=== PATIENT | female | born 1950 | race Two or more races ===

== ENCOUNTER 2020-02-01 14:11 | Emergency (ER) | payer OTHER ==
[~2020-02-01] VITALS: Ht 152.4 cm; Wt 67.1 kg
[~2020-02-01 14:11] MED LIST: CAPT25TA5 PO; HYDR25TA4 PO; METF-370 PO; METO-158 PO; OMEP20TA PO
[2020-02-01 15:13] LABS: Urine Bacteria NONE SEEN /hpf (None Seen); Urine Blood TRACE /uL (Negative); Urine Specific Gravity 1.011 (1.001-1.035); Urine WBC 4 /hpf (0 - 5)
[2020-02-01 15:27] LABS: Basophils # (auto) 0 10 ^3/uL (0-0.2); Basophils % (auto) 0.4 % (0.0-2.0); Eosinophils # (auto) 0.1 10 ^3/uL (0-0.8); Eosinophils % (auto) 0.9 % (0.0-7.0); Hematocrit 43.1 % (36.0-46.0); Hemoglobin 15.2 g/dL (12.2-16.2); Lymphocytes # (auto) 2.1 10 ^3/uL (0.4-5.4); Lymphocytes % (auto) 17.8 % (10.0-50.0); Mean Corpuscular Hemoglobin 29.4 pg (28.0-32.0); Mean Corpuscular Hgb Conc. 35.2 g/dL (32.0-36.0); Mean Corpuscular Volume 83.7 fL (80.0-100.0); Monocytes # (auto) 0.8 10 ^3/uL (0-1.3); Monocytes % (auto) 6.6 % (0.0-12.0); Neutrophils # (auto) 8.7 10 ^3/uL (1.6-8.6); Neutrophils % (auto) 74.3 % (37.0-80.0); Nucleated Red Blood Cells % 0.2 %; Platelet Count (auto) 289 10^3/uL (140-450); Red Blood Cells 5.15 10^6/uL (4.0-5.20); Red Cell Distribution Width 13.8 % (11.8-14.3); White Blood Cell 11.7 10^3/uL (4.4-10.8)
[2020-02-01 15:47] LABS: Calcium 9.5 mg/dL (8.5-10.1); Potassium 3.6 mmol/L (3.5-5.1)
[2020-02-01 15:52] LABS: BUN/Creatinine Ratio 15.4; Bilirubin, Total 0.6 mg/dL (0.2-1.0); Total Protein 9.2 g/dL (6.4-8.2)
[2020-02-01] MEDS ORDERED: GLYCERIN ADULT RECTAL SUPP PR ONE (16:15)
[2020-02-01] MEDS ORDERED: FLEET ENEMA(ADULT) 135 ML PR ONE (16:15)
[2020-02-01 18:58] VITALS: BP 121/45
== END 2020-02-01 19:32 | disposition home or self-care (01) ==
LOC: ER 14:11
DX: R10.84 Generalized abdominal pain (principal); K59.00 Constipation, unspecified
CPT/HCPCS: 36415; 70450; 74018; 80053; 81001; 85025; 93005

== ENCOUNTER 2020-05-27 19:12 | Inpatient (IN) | payer OTHER ==
[~2020-05-27] VITALS: Ht 154.9 cm; Wt 68.5 kg
[2020-05-27] MEDS ORDERED: ONDANSETRON HCL 4 MG/2 ML VIAL IV ONE (20:15)
[2020-05-27] MEDS ORDERED: HYDROmorphone HCL 2 MG/ML VL IV ONE (20:15)
[2020-05-27 21:09] LABS: Urine Bacteria NONE SEEN /hpf (None Seen); Urine Blood TRACE /uL (Negative); Urine Specific Gravity 1.009 (1.001-1.035); Urine WBC 3 /hpf (0 - 5)
[2020-05-27 22:06] LABS: Basophils # (auto) 0.1 10 ^3/uL (0-0.2); Basophils % (auto) 0.6 % (0.0-2.0); Eosinophils # (auto) 0.1 10 ^3/uL (0-0.8); Eosinophils % (auto) 1.1 % (0.0-7.0); Hematocrit 44.2 % (36.0-46.0); Hemoglobin 14.9 g/dL (12.2-16.2); Lymphocytes # (auto) 2.3 10 ^3/uL (0.4-5.4); Lymphocytes % (auto) 23.3 % (10.0-50.0); Mean Corpuscular Hemoglobin 28.9 pg (28.0-32.0); Mean Corpuscular Hgb Conc. 33.6 g/dL (32.0-36.0); Mean Corpuscular Volume 85.9 fL (80.0-100.0); Monocytes # (auto) 0.6 10 ^3/uL (0-1.3); Neutrophils # (auto) 6.7 10 ^3/uL (1.6-8.6); Nucleated Red Blood Cells % 0.1 %; Platelet Count (auto) 303 10^3/uL (140-450); Red Blood Cells 5.15 10^6/uL (4.0-5.20); Red Cell Distribution Width 13.8 % (11.8-14.3); White Blood Cell 9.7 10^3/uL (4.4-10.8)
[2020-05-27 22:27] LABS: Albumin 4.2 g/dL (3.4-5.0); Anion Gap 9 (5-15); Blood Urea Nitrogen 24 mg/dL (7-18); Calcium 9.9 mg/dL (8.5-10.1); Carbon Dioxide 24 mmol/L (21-32); Chloride 99 mmol/L (98-107); Glucose 109 mg/dL (74-106); Lipase 133 U/L (73-393); Potassium 3.6 mmol/L (3.5-5.1); Sodium 132 mmol/L (136-145)
[2020-05-27 22:33] LABS: Alanine Aminotransferase 26 U/L (13-56); Alkaline Phosphatase 80 U/L (45-117); Aspartate Aminotransferase 20 U/L (15-37); BUN/Creatinine Ratio 19.5; Bilirubin, Total 0.6 mg/dL (0.2-1.0); GFR African American 55 mL/min; GFR Non-African American 46 mL/min; Magnesium 2.4 mg/dL (1.6-2.6); Total Protein 9.8 g/dL (6.4-8.2)
[2020-05-27 22:46] LABS: Partial Thromboplastin Time 29.9 sec (23.64-32.05)
[2020-05-28] VITALS (7 sets, daily range): BP systolic 128–162; BP diastolic 67–76
[2020-05-28] MEDS ORDERED: PANTOPRAZOLE 40 MG/10 ML VIAL INJ IV ONE (00:30)
[2020-05-28] MEDS ORDERED: SODIUM CHLORIDE 0.9% 500 ML IV ONE (00:30)
[2020-05-28] MEDS ORDERED: HYDROcodone-ACET 5/325MG TAB PO PRN (00:30)
[2020-05-28] MEDS ORDERED: ONDANSETRON HCL 4 MG/2 ML VIAL IV PRN (00:30)
[2020-05-28] MEDS ORDERED: MORPHINE SULFATE 4 MG/ML SYR/VIAL IV PRN (00:30)
[2020-05-28] MEDS ORDERED: ACETAMINOPHEN 325 MG TAB PO PRN (00:30)
[2020-05-28] MEDS: SODIUM CHLORIDE 0.9% 1,000 ML IV SCH ×2 (02:10→13:50)
--- NOTE | 2020-05-28 05:05 | NUR ---
MS admit from [facility] admitted to tele/MS after SBAR received. Patient oriented to Marilu nicole RN, unit, room, bed, and unit policies regarding patient care and visiting hours. Patient weighed by bed scale and encouraged to call if they need something. All questions and concerns addressed, patient verbalized understanding. Note: Came per wheelchair awake ,alert oriented x 4, Kenyan speaking, placed in the bed comfortably, vital signs checked.
--- NOTE | 2020-05-28 06:53 | NUR ---
Called/paged Trey Galvez called re:blood pressure is 178/84,pulse is 74,right sude, left side is 162/72,pulse is 68 left side.. Waiting for call back. Continue care.
[2020-05-28] MEDS ORDERED: hydrALAZINE HCL 20 MG/ML VL IV PRN (07:00)
--- NOTE | 2020-05-28 07:01 | NUR ---
returned call Trey Galvez returned call, updated on patient status and reason for call, orders received of hydralazine 10mg.i.v.p. for systolic blood pressure above 150 every 6hours p.r.n. Continue care.
--- NOTE | 2020-05-28 07:21 | NUR ---
Report given to Alfonso Valdez, patient is resting no distress.
--- NOTE | 2020-05-28 07:30 | NUR ---
Opening Shift Note Assumed care of patient, who is alert and oriented x4. Respirations are even and unlabored. No S/S of distress/SOB or pain. Bed is low, locked with 2x side rails up. Call light is within reach. Instructed on POC and to call for assist PRN, will continue to monitor for changes Q1hr and PRN.
[2020-05-28] MEDS: cefTRIAXone 1GM/50ML D5W 50 ML IV SCH (09:21)
[2020-05-28] MEDS: PANTOPRAZOLE 40 MG/10 ML VIAL INJ IV SCH (09:21)
--- NOTE | 2020-05-28 14:37 | NUR ---
EGD Patient taken down for EGD.
[2020-05-28 14:54] LABS: Potassium 3.4 mmol/L (3.5-5.1)
[2020-05-28 14:56] LABS: BUN/Creatinine Ratio 18.1
[2020-05-28] MEDS ORDERED: GADOTERIDOL 279.3mg/mL 20ml Vial IV ONE (15:00)
[2020-05-28] MEDS ORDERED: LIDOCAINE VISCOUS 2% 15ML UD ONE (15:41)
[2020-05-28] MEDS ORDERED: diphenhdrAMINE HCL 50 MG/1 ML VL ONE (15:42)
[2020-05-28] MEDS ORDERED: fentaNYL CITRATE 100 MCG/2 ML VL ONE (15:42)
[2020-05-28] MEDS ORDERED: MIDAZOLAM HCL 5 MG/ML-1ML VIAL ONE (15:42)
[2020-05-28] MEDS ORDERED: SODIUM CHLORIDE LOCK 10 ML ONE (15:44)
--- NOTE | 2020-05-28 16:37 | NUR ---
Back in room Returned from EGD. Per MD patient may be discharged tonight if she tolerates dinner tray without nausea or vomiting.
--- NOTE | 2020-05-28 16:41 | NUR ---
Spoke with Dr. Yohana Mccray In regards to possible discharge plan. Dr. Merrick Fernandez would like patient discharged with Protonix 40 mg PO Daily and Carafate 1 gm PO BID. Per Yohana Mccray he will electronically send prescriptions. Will continue to monitor.
--- NOTE | 2020-05-28 16:50 | NUR ---
Spoke with family Spoke with after password was verified. Advised that patient may be discharged if she tolerates full liquid dinner. All questions answered at this time. Will continue to monitor.
[2020-05-28] MEDS: SUCRALFATE 1 GM/10 ML ORAL SUSP PO SCH ×2 (17:18→21:12)
[2020-05-28] MEDS ORDERED: SUCR1SUS10 PO (17:55)
[2020-05-28] MEDS ORDERED: PANT40T PO (17:55)
[2020-05-28] MEDS ORDERED: LEVO500T21 PO (18:04)
--- NOTE | 2020-05-28 19:05 | NUR ---
Endorsed DC To NOC RN. All questions answered.
--- NOTE | 2020-05-28 20:40 | NUR ---
discomfort pt. in pain with headache and generalized discomfort. some n/v post dinner. will continue to monitor.
--- NOTE | 2020-05-28 20:40 | NUR ---
d/c plan pt. d/c held until tomorrow, tentatively, d/t home health eval not cleared allen baez eval and s/s consult pending, however, no clearance for home health set-up.
--- NOTE | 2020-05-28 22:30 | NUR ---
spoke with md allen md says home health completed with [facility] and to not hold up d/c d/t home health/ss consult. allen informed about overall pt. discomfort and nausea. says that is common with gastritis and will not go away overnight. education given to pt. that this will last for next couple of weeks. pt. to stay overnight and see if tolerate breakfast and to plan for d/c in am. pt. and family aware. will continue to monitor pt. status.
[2020-05-29] MEDS: SODIUM CHLORIDE 0.9% 1,000 ML IV SCH (03:02)
[2020-05-29 05:25] VITALS: BP 131/65
[2020-05-29] MEDS: SUCRALFATE 1 GM/10 ML ORAL SUSP PO SCH ×2 (05:57→13:41)
[2020-05-29 06:29] VITALS: BP 131/65
[2020-05-29 08:00] VITALS: BP 129/62
[2020-05-29 09:00] VITALS: BP 129/62
[2020-05-29] MEDS: cefTRIAXone 1GM/50ML D5W 50 ML IV SCH (09:19)
--- NOTE | 2020-05-29 11:00 | NUR ---
DR. KONG PHONE CALL RECEIVED FROM DR. SOTOMAYOR REGARDING DC PATIENT. INFORMED DR. SOTOMAYOR PATIENT HAS NO C/O NAUSEA OR VOMITING THIS MORNING. DR. SOTOMAYOR STATED IS OKAY FOR PATIENT TO HAVE NAUSEA DUE TO DX. DR. SOTOMAYOR DC ORDER FOR MRI ABDOMEN PATIENT CAN DO EXAM OUTPATIENT.ORDERS TO DC PATIENT WILL BE CARRIED OUT.
[2020-05-29] MEDS: PANTOPRAZOLE 40 MG/10 ML VIAL INJ IV SCH (11:23)
[2020-05-29 11:33] VITALS: BP 129/62
--- NOTE | 2020-05-29 11:35 | NUR ---
Opening Shift Note Assumed care of patient, awake and alert. No S/S of distress/SOB or pain. Instructed on POC and to call for assist PRN, will continue to monitor for changes Q1hr and PRN. Bed is locked and in lowest position. Call light within reach. Addendum: 05/29/20 at 1256 by SIDDHARTHA SALGADO RN RN Incorrect time the correct time is 0730 for note.
--- NOTE | 2020-05-29 11:55 | NUR ---
HOME HEALTH SOCIAL SERVICE CONSULT FAXED OVER TO [phone] TO [facility]. PHONE CALL MADE X 2 TO YULY AT [phone] [facility] TO VERIFY FAX WAS RECEIVED NO ANSWER. WILL CONTINUE TO CALL TO VERIFY HOME HEALTH SOCIAL SERVICE CONSULT RECEIVED.
--- NOTE | 2020-05-29 13:43 | NUR ---
Discharge instructions given as ordered. Encourage to follow up with PMD as instructed. All questions and concerns addressed. Patient verbalized understanding. Medication reconciliation form completed and copy given to patient. Home medications held in Pharmacy returned to patient, and needed vaccines given. IV removed with catheter intact, pressure dressing applied. Patient awaiting transportation.
[2020-05-29 14:00] VITALS: BP 135/68
--- NOTE | 2020-05-29 14:57 | NUR ---
Patient taken to vehicle via wheelchair with all personal belongings, accompanied by staff and family member. No distress noted at time of departure.
--- NOTE | 2020-05-31 10:31 | NUR ---
No call or page received from [employer] this weekend. Contacted Hilary at [facility] and confirmed pt had been accepted onto service with [facility]. Clinical information faxed and auth provided by [facility].
== END 2020-05-29 18:00 | disposition home health service (06) | DRG 391 ==
LOC: ER 19:12 → OVERFLOW 19:13 → WEST WING 05-28 05:05
PROVIDERS: ADMIT Nurse Practitioner; ATTEND Internal Medicine
PROC: 0DB88ZX Excision of Small Intestine, Via Natural or Artificial Opening Endoscopic, Diagnostic (ICD-10-PCS; 2020-05-28)
PROC: 0DB68ZX Excision of Stomach, Via Natural or Artificial Opening Endoscopic, Diagnostic (ICD-10-PCS; principal; 2020-05-28 15:45)
DX: K29.70 Gastritis, unspecified, without bleeding (principal); N17.0 Acute kidney failure with tubular necrosis; N39.0 Urinary tract infection, site not specified; K44.9 Diaphragmatic hernia without obstruction or gangrene; K80.50 Calculus of bile duct without cholangitis or cholecystitis without obstruction; E11.9 Type 2 diabetes mellitus without complications; R16.0 Hepatomegaly, not elsewhere classified; K21.9 Gastro-esophageal reflux disease without esophagitis; I10 Essential (primary) hypertension; E78.5 Hyperlipidemia, unspecified; Z85.528 Personal history of other malignant neoplasm of kidney; Z90.49 Acquired absence of other specified parts of digestive tract; Z90.5 Acquired absence of kidney; Z90.710 Acquired absence of both cervix and uterus; Z88.6 Allergy status to analgesic agent
CPT/HCPCS: 36415; 43239; 74176; 74181; 76705; 80048; 80053; 81001; 82150; 82962; 83690; 83735; 84484; 85025; 85610; 85730; 93005; 96361; 96374; 96375; C9113; G0378; J0696; J2250; J2405

== ENCOUNTER 2020-09-18 06:41 | Emergency (ER) | payer OTHER ==
[~2020-09-18] VITALS: Ht 152.4 cm; Wt 70.3 kg
[~2020-09-18 06:41] MED LIST changes: +LEVO500T21 PO; +PANT40T PO; +SUCR1SUS10 PO
[2020-09-18 08:16] LABS: Basophils # (auto) 0 10 ^3/uL (0-0.2); Basophils % (auto) 0.5 % (0.0-2.0); Eosinophils # (auto) 0.1 10 ^3/uL (0-0.8); Eosinophils % (auto) 0.8 % (0.0-7.0); Hematocrit 42.5 % (36.0-46.0); Hemoglobin 14.4 g/dL (12.2-16.2); Lymphocytes # (auto) 1.4 10 ^3/uL (0.4-5.4); Lymphocytes % (auto) 17.4 % (10.0-50.0); Mean Corpuscular Hgb Conc. 33.9 g/dL (32.0-36.0); Mean Corpuscular Volume 85.5 fL (80.0-100.0); Monocytes # (auto) 0.6 10 ^3/uL (0-1.3); Monocytes % (auto) 7.6 % (0.0-12.0); Neutrophils % (auto) 73.7 % (37.0-80.0); Nucleated Red Blood Cells % 0.2 %; Platelet Count (auto) 307 10^3/uL (140-450); Red Blood Cells 4.97 10^6/uL (4.0-5.20); Red Cell Distribution Width 13.8 % (11.8-14.3); White Blood Cell 8.2 10^3/uL (4.4-10.8)
[2020-09-18 08:26] LABS: INR 0.97 (0.9-1.15); Partial Thromboplastin Time 31.2 sec (23.0-31.2)
[2020-09-18 08:29] LABS: Alanine Aminotransferase 24 U/L (13-56); Anion Gap 7 (5-15); Aspartate Aminotransferase 16 U/L (15-37); BUN/Creatinine Ratio 14.8; Blood Urea Nitrogen 18 mg/dL (7-18); Calcium 9.2 mg/dL (8.5-10.1); Carbon Dioxide 27 mmol/L (21-32); Chloride 99 mmol/L (98-107); GFR African American 56 mL/min; GFR Non-African American 46 mL/min; Glucose 118 mg/dL (74-106); Magnesium 2.5 mg/dL (1.6-2.6); Potassium 3.5 mmol/L (3.5-5.1); Sodium 133 mmol/L (136-145)
[2020-09-18 08:34] LABS: Alkaline Phosphatase 94 U/L (45-117); Bilirubin, Total 0.6 mg/dL (0.2-1.0); Total Protein 9.1 g/dL (6.4-8.2)
[2020-09-18 08:46] LABS: Albumin 0.6 g/dL (3.4-5.0)
[2020-09-18 10:00] VITALS: BP 133/95
[2020-09-18] MEDS ORDERED: HYDROcodone-ACET 10/325MG TAB PO ONE (12:15)
[2020-09-18] MEDS ORDERED: KETOROLAC TROMETH 60MG/2ML VIAL IM ONE (12:15)
== END 2020-09-18 12:58 | disposition home or self-care (01) ==
LOC: ER 06:41
DX: N39.0 Urinary tract infection, site not specified (principal); R51.9 Headache, unspecified; R42 Dizziness and giddiness; E43 Unspecified severe protein-calorie malnutrition; I10 Essential (primary) hypertension; E11.9 Type 2 diabetes mellitus without complications; E78.5 Hyperlipidemia, unspecified; Z68.30 Body mass index [BMI] 30.0-30.9, adult; Z90.89 Acquired absence of other organs; Z90.49 Acquired absence of other specified parts of digestive tract; Z90.710 Acquired absence of both cervix and uterus
CPT/HCPCS: 36415; 70450; 71045; 80053; 83735; 83880; 84484; 85025; 85610; 85730; 93005

== ENCOUNTER 2020-09-25 15:08 | Inpatient (IN) | payer OTHER ==
--- NOTE | 2020-09-15 03:59 | NUR ---
Elevated Temp Patient temp 101.4 Patient medicated per provider orders. Addendum: 09/26/20 at 0403 by DOTTY ALVES RN RN Correct time and date 0359 09/26/2020
[~2020-09-25] VITALS: Ht 154.9 cm; Wt 70.0 kg
[2020-09-25] MEDS ORDERED: SODIUM CHLORIDE 0.9% 1,000 ML IVB ONE (16:30)
[2020-09-25 16:43] LABS: Basophils # (auto) 0.1 10 ^3/uL (0-0.2); Basophils % (auto) 0.6 % (0.0-2.0); Eosinophils # (auto) 0 10 ^3/uL (0-0.8); Hematocrit 35.5 % (36.0-46.0); Hemoglobin 12.8 g/dL (12.2-16.2); Lymphocytes # (auto) 0.6 10 ^3/uL (0.4-5.4); Lymphocytes % (auto) 4.6 % (10.0-50.0); Mean Corpuscular Hemoglobin 29.1 pg (28.0-32.0); Mean Corpuscular Hgb Conc. 36.1 g/dL (32.0-36.0); Mean Corpuscular Volume 80.6 fL (80.0-100.0); Monocytes # (auto) 0.5 10 ^3/uL (0-1.3); Monocytes % (auto) 3.6 % (0.0-12.0); Neutrophils # (auto) 11.8 10 ^3/uL (1.6-8.6); Neutrophils % (auto) 91.2 % (37.0-80.0); Nucleated Red Blood Cells % 0.2 %; Platelet Count (auto) 276 10^3/uL (140-450); Red Blood Cells 4.41 10^6/uL (4.0-5.20)
[2020-09-25 16:59] LABS: INR 1.04 (0.9-1.15); Partial Thromboplastin Time 34.2 sec (23.0-31.2)
[2020-09-25 17:04] LABS: Albumin 3.1 g/dL (3.4-5.0); Anion Gap 12 (5-15); Blood Urea Nitrogen 20 mg/dL (7-18); Calcium 8.6 mg/dL (8.5-10.1); Carbon Dioxide 23 mmol/L (21-32); Chloride 80 mmol/L (98-107); Glucose 131 mg/dL (74-106)
[2020-09-25 17:12] LABS: Alanine Aminotransferase 31 U/L (13-56); Alkaline Phosphatase 99 U/L (45-117); Aspartate Aminotransferase 36 U/L (15-37); BUN/Creatinine Ratio 14.5; Bilirubin, Total 0.8 mg/dL (0.2-1.0); GFR African American 48 mL/min; GFR Non-African American 40 mL/min; Total Protein 8.7 g/dL (6.4-8.2)
[2020-09-25 17:28] LABS: Sodium 115 mmol/L (136-145)
[2020-09-25] MEDS ORDERED: SODIUM CHL 3% 500 ML IV ONE (17:45)
[2020-09-25] MEDS ORDERED: POTASSIUM CHL 20 Meq TABLET PO ONE (17:45)
[2020-09-25 19:16] LABS: Urine Bacteria NONE SEEN /hpf (None Seen); Urine Blood TRACE /uL (Negative); Urine Specific Gravity 1.009 (1.001-1.035); Urine WBC 1 /hpf (0 - 5)
[2020-09-25] MEDS ORDERED: DOCUSATE SOD 100 MG CAP PO PRN (19:45)
[2020-09-25] MEDS ORDERED: guaiFENesin-DM 100/10mg/5ml SYR PO PRN (19:45)
[2020-09-25] MEDS ORDERED: ONDANSETRON HCL 4 MG/2 ML VIAL IV PRN (19:45)
[2020-09-25] MEDS ORDERED: DEXTROSE (50%) 50ML SYRG IV PRN (19:45)
[2020-09-25] MEDS ORDERED: HYDROcodone-ACET 5/325MG TAB PO PRN (19:45)
[2020-09-25] MEDS ORDERED: MORPHINE SULF INJ 2 MG/ML SYRINGE 1ML IV PRN ×2 (19:45)
[2020-09-25] MEDS ORDERED: NITROGLYCERIN 0.4 MG SL TAB SL PRN (19:45)
--- NOTE | 2020-09-25 20:05 | NUR ---
Received Patient From ER Patient arrived to unit via stretcher, Patient placed in Airborne Isolation due to Hector Virus Rule out, patient transferred to bed via 3 person transfer, monitoring devices applied to patient, patient alert and oriented, Patient oriented to room, VS upon arrival Wt 68.2KG, BP 102/56 HR 99, RR 16 O2Sat 92% on 2L NC Temp 102, patient received Tylenol in ER, Cooling measures used to assist with elevated Temp. Patient made comfortable, bed in lowest position with Bed rails up x3 and bed locked in place with call light in reach. Addendum: 09/26/20 at 0327 by DOTTY ALVES RN RN Correct Time for Admission is 7 09/25/20
[2020-09-25] MEDS: PIPERACILLIN-TAZOB 3.375GM 100 ML IV SCH (21:17)
[2020-09-25] MEDS: METOPROLOL TARTRATE 50 MG TAB PO SCH (21:17)
[2020-09-25 21:20] LABS: Lactate Dehydrogenase 363 U/L (84-246)
[2020-09-25 21:28] LABS: CRP High Sensitivity > 19.0 mg/dL (< 0.3)
--- NOTE | 2020-09-25 21:30 | NUR ---
Recieved Ed Report from Ramon BRICEÑO,
[2020-09-25] MEDS ORDERED: ACETAMINOPHEN 325 MG TAB PO ONE (21:43)
[2020-09-25 22:05] VITALS: BP 102/56
[2020-09-25] MEDS: ACETAMINOPHEN 500 MG TAB PO PRN (22:13)
[2020-09-25] MEDS: InsuLIN REG 1unit/0.01ml Soln (100units/ml) SC SCH (22:43)
[2020-09-25] MEDS: ACCU-CHEK COMFORT CURVE STRIP VI SCH (22:44)
--- NOTE | 2020-09-25 23:00 | NUR ---
TEMP WNL Patient re-evaluated for temp current temp is now 98.5, patient is resting comfortably in bed without s/s of distress at this time.
[2020-09-26] VITALS (7 sets, daily range): BP systolic 108–149; BP diastolic 55–77
[2020-09-26 01:29] LABS: BUN/Creatinine Ratio 13.9; Calcium 8.1 mg/dL (8.5-10.1); Potassium 3.5 mmol/L (3.5-5.1)
--- NOTE | 2020-09-26 01:30 | NUR ---
Patient Rounding Patient is resting quietly in bed with out s/s of distress at this time.
[2020-09-26] MEDS: PIPERACILLIN-TAZOB 3.375GM 100 ML IV SCH ×4 (03:35→21:00)
[2020-09-26] MEDS: ACETAMINOPHEN 500 MG TAB PO PRN (03:57)
--- NOTE | 2020-09-26 03:59 | NUR ---
Elevated Temp Patient temp 101.4 Patient medicated per provider orders.
--- NOTE | 2020-09-26 05:00 | NUR ---
Morning CARE Patient received a partial linen change, clean Gown and partial soap water bath. patient tolerated process with minimal distress.
[2020-09-26 05:45] LABS: Basophils # (auto) 0 10 ^3/uL (0-0.2); Basophils % (auto) 0.3 % (0.0-2.0); Eosinophils # (auto) 0 10 ^3/uL (0-0.8); Eosinophils % (auto) 0.1 % (0.0-7.0); Hematocrit 45.5 % (36.0-46.0); Hemoglobin 14.8 g/dL (12.2-16.2); Lymphocytes # (auto) 1.1 10 ^3/uL (0.4-5.4); Lymphocytes % (auto) 8.3 % (10.0-50.0); Mean Corpuscular Hemoglobin 28.4 pg (28.0-32.0); Mean Corpuscular Hgb Conc. 32.5 g/dL (32.0-36.0); Mean Corpuscular Volume 87.5 fL (80.0-100.0); Monocytes # (auto) 0.5 10 ^3/uL (0-1.3); Monocytes % (auto) 4.1 % (0.0-12.0); Neutrophils # (auto) 11.4 10 ^3/uL (1.6-8.6); Neutrophils % (auto) 87.2 % (37.0-80.0); Nucleated Red Blood Cells % 0.1 %; Platelet Count (auto) 138 10^3/uL (140-450); Red Cell Distribution Width 13.7 % (11.8-14.3); White Blood Cell 13.1 10^3/uL (4.4-10.8)
[2020-09-26] MEDS: ACCU-CHEK COMFORT CURVE STRIP VI SCH ×4 (06:35→22:00)
[2020-09-26] MEDS: InsuLIN REG 1unit/0.01ml Soln (100units/ml) SC SCH ×4 (06:36→22:00)
--- NOTE | 2020-09-26 06:56 | NUR ---
Shift END NOTE Will provided Shift report and endorse care, patient had episodes of elevated temp, patient given Tylenol and fever reduced to 98.8, patient is currently receiving 3% Sodium for current Na+ of 119.
[2020-09-26 09:01] LABS: Calcium 8.6 mg/dL (8.5-10.1); Potassium 3.4 mmol/L (3.5-5.1)
[2020-09-26 09:07] LABS: Albumin 2.6 g/dL (3.4-5.0); BUN/Creatinine Ratio 13.3; Bilirubin, Total 0.7 mg/dL (0.2-1.0); Total Protein 7.8 g/dL (6.4-8.2)
[2020-09-26] MEDS: PANTOPRAZOLE 40 MG TAB PO SCH (11:09)
[2020-09-26] MEDS: METOPROLOL TARTRATE 50 MG TAB PO SCH ×2 (11:09→22:00)
--- NOTE | 2020-09-26 12:00 | NUR ---
Elevated temp of 101.5 Room cooling down with cool rag to forehead and Tylenol given
[2020-09-26 13:27] LABS: BUN/Creatinine Ratio 11.8; Potassium 3.2 mmol/L (3.5-5.1)
[2020-09-26] MEDS ORDERED: POTASSIUM CHL 20MEQ/100ML 100 ML IV SCH (13:45)
[2020-09-26] MEDS ORDERED: POTASSIUM CHLORIDE 60 MEQ, LIDOCAINE 1% (LOCAL ANESTH.) 6 ML in SODIUM CHL 0.9% 500 ML IV ONE (14:45)
--- NOTE | 2020-09-26 15:00 | NUR ---
COVID POSITIVE results received.
[2020-09-26] MEDS: ZINC SULFATE 220mg CAP or TAB PO SCH (15:06)
[2020-09-26] MEDS: CHOLECALCIFEROL (VITD3) 2,000 UNIT CAP PO SCH (15:06)
[2020-09-26] MEDS: DexAMETHasone SOD PHOS 10MG/1ML VIAL INJ IV SCH (15:06)
--- NOTE | 2020-09-26 16:00 | NUR ---
Temp Recheck 98.5. Will continue to monitor closely.
[2020-09-26] MEDS ORDERED: ENOXAPARIN SOD 80 MG/0.8ML SYRINGE SC SCH (18:00)
--- NOTE | 2020-09-26 18:00 | NUR ---
Called MD Bush regarding positive DVT results. New orders received
--- NOTE | 2020-09-26 18:07 | NUR ---
Nutrition Pt refused breakfast and lunch b.c of lack of appetite . Encouraged to eat her meals, Pt verbalized understanding and stated she will attempt to eat dinner.
[2020-09-26] MEDS: ENOXAPARIN SOD 80 MG/0.8ML SYRINGE SC SCH (19:30)
[2020-09-26 20:40] LABS: BUN/Creatinine Ratio 10.3; Calcium 8.2 mg/dL (8.5-10.1); Potassium 3.7 mmol/L (3.5-5.1)
[2020-09-26] MEDS: ASCORBIC ACID 500 MG TAB PO SCH (22:00)
[2020-09-27] VITALS: BP_SYST 111; BP_SYST 122; BP_DIAS 60; BP_DIAS 63
[2020-09-27] MEDS: PIPERACILLIN-TAZOB 3.375GM 100 ML IV SCH ×2 (03:21→10:09)
[2020-09-27 04:00] VITALS: BP 117/60
[2020-09-27 04:58] LABS: Potassium 4.4 mmol/L (3.5-5.1)
[2020-09-27 05:02] LABS: BUN/Creatinine Ratio 15.8; Calcium 8.6 mg/dL (8.5-10.1)
[2020-09-27] MEDS: InsuLIN REG 1unit/0.01ml Soln (100units/ml) SC SCH ×4 (07:03→22:50)
[2020-09-27] MEDS: ACCU-CHEK COMFORT CURVE STRIP VI SCH ×4 (07:04→22:00)
[2020-09-27 08:00] VITALS: BP 131/69
[2020-09-27] MEDS: ENOXAPARIN SOD 80 MG/0.8ML SYRINGE SC SCH ×2 (08:08→20:12)
[2020-09-27] MEDS: ZINC SULFATE 220mg CAP or TAB PO SCH (10:07)
[2020-09-27] MEDS: ASCORBIC ACID 500 MG TAB PO SCH ×2 (10:08→22:48)
[2020-09-27] MEDS: CHOLECALCIFEROL (VITD3) 2,000 UNIT CAP PO SCH (10:08)
[2020-09-27] MEDS: DexAMETHasone SOD PHOS 10MG/1ML VIAL INJ IV SCH (10:08)
[2020-09-27] MEDS: PANTOPRAZOLE 40 MG TAB PO SCH (10:08)
[2020-09-27] MEDS: METOPROLOL TARTRATE 50 MG TAB PO SCH ×2 (10:09→22:48)
--- NOTE | 2020-09-27 10:30 | NUR ---
IV removal IV DC'd from left AC with clean sterile technique, catheter fully intact. Pressure dressing applied to site. Patient tolerated well. NOTE: []
[2020-09-27 12:00] VITALS: BP 100/51
[2020-09-27 14:28] LABS: Hematocrit 35.4 % (36.0-46.0); Hemoglobin 11.8 g/dL (12.2-16.2); Mean Corpuscular Hemoglobin 28.5 pg (28.0-32.0); Mean Corpuscular Hgb Conc. 33.3 g/dL (32.0-36.0); Mean Corpuscular Volume 85.4 fL (80.0-100.0); Platelet Count (auto) 328 10^3/uL (140-450); Red Blood Cells 4.15 10^6/uL (4.0-5.20); Red Cell Distribution Width 14.1 % (11.8-14.3); White Blood Cell 13.4 10^3/uL (4.4-10.8)
[2020-09-27 14:31] LABS: Basophils % (manual) 0 (0.0-2.0); Blast Cells 0; Eosinophils % (manual) 0 (0-7); Metamyelocytes % 0; Myelocytes % 0; Promyelocytes % 0; Reactive Lymphocytes 0
[2020-09-27 14:56] LABS: Band Neutrophils % (manual) 16; Lymphocytes % (manual) 6 (10.0-50.0); Monocytes % (manual) 6 (0-12)
[2020-09-27] MEDS: DOXYCYCLINE 100MG/250ML 250 ML IV SCH (15:06)
[2020-09-27 16:00] VITALS: BP 99/54
--- NOTE | 2020-09-27 16:32 | NUR ---
Hematology at bedside Dr Chavez reviewed patient labs, no verbal orders given at this time.
--- NOTE | 2020-09-27 17:00 | NUR ---
REPORT GIVEN TO RECEIVING RN KEYANNA COOPER VERBALIZED UNDERSTANDING. WILL PREPARE PATIENT FOR TRANSFER AFTER ACCU CHECK COMPLETE.
--- NOTE | 2020-09-27 17:46 | NUR ---
Family updated on pt transfer Family of [facility] ([facility])updated on patient's transfer to room 244-7 All questions and concerns addressed. verbalized understanding.
--- NOTE | 2020-09-27 18:08 | NUR ---
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 All patient personal belongings transferred with patient to receiving floor. Patient care transferred to Colten RN, patient alert and oriented, vital signs stable upon transfer.
--- NOTE | 2020-09-27 19:15 | NUR ---
Opening Shift Note Received report from marquita Abel RN. Assumed care of patient, awake and alert. No S/S of distress/SOB or pain. Instructed on POC and to call for assist PRN, will continue to monitor for changes Q1hr and PRN. Bed placed in lowest position, bed alarm turned on and call light within reach.
[2020-09-27 22:00] VITALS: BP 137/58
[2020-09-28] VITALS (7 sets, daily range): BP systolic 102–146; BP diastolic 55–82
[2020-09-28] MEDS: DOXYCYCLINE 100MG/250ML 250 ML IV SCH ×2 (02:21→15:26)
[2020-09-28] MEDS: InsuLIN REG 1unit/0.01ml Soln (100units/ml) SC SCH ×4 (06:36→21:48)
[2020-09-28] MEDS: ACCU-CHEK COMFORT CURVE STRIP VI SCH ×4 (06:36→21:48)
[2020-09-28 06:39] LABS: Basophils # (auto) 0 10 ^3/uL (0-0.2); Basophils % (auto) 0.1 % (0.0-2.0); Eosinophils # (auto) 0 10 ^3/uL (0-0.8); Hematocrit 34.3 % (36.0-46.0); Hemoglobin 11.6 g/dL (12.2-16.2); Lymphocytes % (auto) 6.1 % (10.0-50.0); Mean Corpuscular Hemoglobin 28.1 pg (28.0-32.0); Mean Corpuscular Hgb Conc. 33.8 g/dL (32.0-36.0); Mean Corpuscular Volume 83.2 fL (80.0-100.0); Monocytes # (auto) 0.7 10 ^3/uL (0-1.3); Monocytes % (auto) 4.2 % (0.0-12.0); Neutrophils # (auto) 14.1 10 ^3/uL (1.6-8.6); Neutrophils % (auto) 89.6 % (37.0-80.0); Platelet Count (auto) 404 10^3/uL (140-450); Red Blood Cells 4.12 10^6/uL (4.0-5.20); Red Cell Distribution Width 13.7 % (11.8-14.3); White Blood Cell 15.7 10^3/uL (4.4-10.8)
[2020-09-28 07:01] LABS: Potassium 3.6 mmol/L (3.5-5.1)
[2020-09-28 07:12] LABS: Calcium 8.8 mg/dL (8.5-10.1); Magnesium 2.3 mg/dL (1.6-2.6)
[2020-09-28] MEDS ORDERED: ENOXAPARIN SOD 80 MG/0.8ML SYRINGE SC SCH (10:00)
[2020-09-28] MEDS: DexAMETHasone SOD PHOS 10MG/1ML VIAL INJ IV SCH (10:05)
[2020-09-28] MEDS: METOPROLOL TARTRATE 50 MG TAB PO SCH ×2 (10:05→21:49)
[2020-09-28] MEDS: PANTOPRAZOLE 40 MG TAB PO SCH (10:05)
[2020-09-28] MEDS: ASCORBIC ACID 500 MG TAB PO SCH ×2 (10:05→21:48)
[2020-09-28] MEDS: ZINC SULFATE 220mg CAP or TAB PO SCH (10:05)
[2020-09-28] MEDS: CHOLECALCIFEROL (VITD3) 2,000 UNIT CAP PO SCH (10:35)
--- NOTE | 2020-09-28 19:50 | NUR ---
OPENING SHIFT NOTE Assumed care of patient who is A&O x4. Currently on 2L NC with no s/s of distress. Denies pain at this time. PIV in left forearm is intact and patent. Flushed with 10ml NS. Dressing reinforced. Bed is in low locked position with side rails up x2. Call light is within reach and patient encouraged to call for assistance when needed. Will continue to monitor for changes PRN.
[2020-09-28] MEDS: APIXABAN 5 MG TAB PO SCH (21:48)
--- NOTE | 2020-09-28 23:52 | NUR ---
DESATURATION Patient removed nasal cannula. Spo2 on RA is 85% Placed back onto 2L NC and Spo2 increased to 93% Will continue to monitor.
[2020-09-29] MEDS: DOXYCYCLINE 100MG/250ML 250 ML IV SCH ×2 (02:05→14:15)
--- NOTE | 2020-09-29 02:22 | NUR ---
IV insertion IV access obtained, via clean sterile technique by inserting 22 gauge catheter at right forearm after 1 attempt. IV secured properly. No trauma to site. Patient tolerated well.
--- NOTE | 2020-09-29 04:02 | NUR ---
IV removal IV in left forearm leaking. DC'd with clean sterile technique, catheter fully intact. Pressure dressing applied to site. Patient tolerated well.
[2020-09-29 06:30] VITALS: BP 102/66
[2020-09-29] MEDS: ACCU-CHEK COMFORT CURVE STRIP VI SCH ×3 (06:31→16:25)
[2020-09-29] MEDS: InsuLIN REG 1unit/0.01ml Soln (100units/ml) SC SCH ×3 (06:31→16:25)
--- NOTE | 2020-09-29 06:32 | NUR ---
OXYGEN SATURATION Patient removed nasal canula. Dry coughing noted. Spo2 is 85% on RA. Nasal canula replaced and patient educated on the importance of wearing the nasal canula to ensure proper oxygenation. Verbalizes understanding. Spo2 increased to 92% on 2L NC.
[2020-09-29 06:56] LABS: Hematocrit 33.5 % (36.0-46.0); Hemoglobin 11.4 g/dL (12.2-16.2); Mean Corpuscular Hemoglobin 28.2 pg (28.0-32.0); Mean Corpuscular Hgb Conc. 33.9 g/dL (32.0-36.0); Mean Corpuscular Volume 83.3 fL (80.0-100.0); Platelet Count (auto) 424 10^3/uL (140-450); Red Blood Cells 4.02 10^6/uL (4.0-5.20); Red Cell Distribution Width 13.8 % (11.8-14.3); White Blood Cell 12.6 10^3/uL (4.4-10.8)
[2020-09-29 06:58] LABS: Calcium 8.7 mg/dL (8.5-10.1); Potassium 3.6 mmol/L (3.5-5.1)
[2020-09-29 07:00] LABS: Basophils % (manual) 0 (0.0-2.0); Blast Cells 0; Eosinophils % (manual) 0 (0-7); Promyelocytes % 0; Reactive Lymphocytes 0
[2020-09-29 07:04] LABS: Albumin 2.4 g/dL (3.4-5.0); Bilirubin, Total 0.3 mg/dL (0.2-1.0); Total Protein 7.3 g/dL (6.4-8.2)
--- NOTE | 2020-09-29 07:28 | NUR ---
OPENING SHIFT NOTE Assumed care of patient, awake and alert. No S/S of distress/SOB or pain. Instructed on POC and to call for assist PRN, will continue to monitor for changes Q1hr and PRN. Bed placed in lowest position, bed alarm turned on and call light within reach.
[2020-09-29 08:18] LABS: Band Neutrophils % (manual) 17; Lymphocytes % (manual) 16 (10.0-50.0); Metamyelocytes % 2; Monocytes % (manual) 5 (0-12); Myelocytes % 1
[2020-09-29 08:45] VITALS: BP 120/66
[2020-09-29] MEDS: CHOLECALCIFEROL (VITD3) 2,000 UNIT CAP PO SCH (09:57)
[2020-09-29] MEDS: PANTOPRAZOLE 40 MG TAB PO SCH (09:57)
[2020-09-29] MEDS: ASCORBIC ACID 500 MG TAB PO SCH (09:57)
[2020-09-29] MEDS: DexAMETHasone SOD PHOS 10MG/1ML VIAL INJ IV SCH (09:58)
[2020-09-29] MEDS: ZINC SULFATE 220mg CAP or TAB PO SCH (09:58)
[2020-09-29] MEDS: METOPROLOL TARTRATE 50 MG TAB PO SCH (09:59)
[2020-09-29] MEDS: APIXABAN 5 MG TAB PO SCH (09:59)
[2020-09-29] MEDS ORDERED: METOPROLOL TARTRATE 50 MG TAB PO SCH (10:30)
[2020-09-29] MEDS ORDERED: POTASSIUM PHOSPHATE 26.4 MEQ in SODIUM CHL 0.9% 100 ML IV ONE (10:30)
[2020-09-29 12:45] VITALS: BP_SYST 121; BP_SYST 146; BP_DIAS 59; BP_DIAS 70
--- NOTE | 2020-09-29 14:56 | NUR ---
Nutrition Assessment Notes Please refer to link for full assessment notes. Est Energy needs: 9630-5100 kcals (20-23 kcal/kgBW) Est Protein needs: 70-77 gms/day (1.0-1.1 gm/kgBW) Will continue to monitor and reassess prn. Addendum: 09/29/20 at [address] Amended: Links added.
--- NOTE | 2020-09-29 15:41 | NUR ---
ROUNDING MD BOSTON AT BEDSIDE. ALL QUESTIONS AND CONCERNS ADDRESSED AT THIS TIME.
--- NOTE | 2020-09-29 15:45 | NUR ---
CALL PLACED TO REGARDING D/C PLANS STATES "I WANT IN WRITING THAT SHE IS OKAY TO LEAVE OR I WILL JOCY, SHE WILL NOT LEAVE JUST SO YOU GUYS CAN HAVE A BED, IF SHE HAS A BLOOD CLOT I NEED TO TALK TO HER DOCTOR SO I CAN KNOW HOW HER KIDNEYS ARE" WAS UPDATE ON POC. RN WILL NOTIFY MD OF REQUEST TO SPEAK TO MD.
--- NOTE | 2020-09-29 15:46 | NUR ---
MD CONTACTED RE: FAMILY REQUSTING TO SPEAK WITH HIM ABOUT DISCHARGE. STATES " I WILL CALL HIM AND UPDATE HIM"
--- NOTE | 2020-09-29 15:51 | NUR ---
Assessment Patient is a 70-year-old female who is alert and oriented. Patient Primary language is American. Patient did not want to participate when assessing her. Regarding social service consult for home oxygen at 1 L/Min. Faxed clinical information to [facility] and [facility]. Requested for [facility] to deliver oxygen to front lobby . Placed follow up called to RC Dozier with [facility] advising her patient has orders for home oxygen. Per RC Dozier authorization will be faxed to [facility].
--- NOTE | 2020-09-29 15:52 | NUR ---
PRESCRIPTION CALLED IN TO [facility]
[2020-09-29 16:13] VITALS: BP 98/62
--- NOTE | 2020-09-29 16:42 | NUR ---
Obtain authorization from [facility] for [facility] [id number].
--- NOTE | 2020-09-29 17:10 | NUR ---
PAGED ON-CALL SSW RE: NEW HOME HEALTH ORDER
--- NOTE | 2020-09-29 17:11 | NUR ---
CALL PLACE TO [facility] RE: DROP OFF TIME FOR HOME O2. PER SALES HOST ETA IS BETWEEN 6PM AND 8PM
[2020-09-29 17:14] VITALS: BP 135/75
--- NOTE | 2020-09-29 18:18 | NUR ---
IV removal IV DC'd with clean sterile technique, catheter fully intact. Pressure dressing applied to site. Patient tolerated well. TELEMETRY BOX SENT BACK TO TELEMETRY OFFICE
--- NOTE | 2020-09-29 19:50 | NUR ---
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 INSTRUCTED AND EDUCATED PATIENT ON USE OF OXYGEN TANK, PATIENT VERBALIZED UNDERSTANDING. PATIENT ALERT AND ORIENTED X4. NO S/S OF DISTRESS. PATIENT ON OXYGEN 1L VIA NC, PATIENT DENIES SOB OR COUGH AT THIS TIME. PATIENT TURNS INDEPENDENTLY IN BED. INSTRUCTED PATIENT ON PLAN OF CARE FOR DISCHARGE. PATIENT VERBALIZED UNDERSTANDING. WAITING FOR FOR TRANSPORTATION HOME.
--- NOTE | 2020-09-29 20:35 | NUR ---
Discharge instructions given as ordered. Encourage to follow up with PMD as instructed. All questions and concerns addressed. Patient verbalized understanding. Medication reconciliation form completed and copy given to patient. Patient taken to vehicle via wheelchair with all personal belongings and on portable oxygen tank, 1L of oxygen via NC, accompanied by staff. No distress noted at time of departure.
--- NOTE | 2020-09-30 12:04 | NUR ---
ss consult Per consult [facility]. order has been sent to [facility]. Per Tricia at [facility] she has accepted patient for service. I will get auth from [facility] for [facility]. Addendum: 09/30/20 at 1209 by Katarina GANT Amended: Links added.
== END 2020-09-29 20:35 | disposition home health service (06) | DRG 871 ==
LOC: ER 15:08 → TELE 19:40 → DOU IN ICU 22:16 → TELE-E-ADS 09-27 18:08
PROVIDERS: ADMIT Nurse Practitioner Acute Care; ATTEND Internal Medicine
DX: A41.89 Other specified sepsis (principal); U07.1 COVID-19; J96.01 Acute respiratory failure with hypoxia; J12.89 Other viral pneumonia; E87.1 Hypo-osmolality and hyponatremia; N17.9 Acute kidney failure, unspecified; J98.11 Atelectasis; I82.432 Acute embolism and thrombosis of left popliteal vein; I82.442 Acute embolism and thrombosis of left tibial vein; E87.6 Hypokalemia; N18.30 Chronic kidney disease, stage 3 unspecified; K21.9 Gastro-esophageal reflux disease without esophagitis; K29.70 Gastritis, unspecified, without bleeding; E88.09 Other disorders of plasma-protein metabolism, not elsewhere classified; E11.22 Type 2 diabetes mellitus with diabetic chronic kidney disease; E86.0 Dehydration; I12.9 Hypertensive chronic kidney disease with stage 1 through stage 4 chronic kidney disease, or unspecified chronic kidney disease; Z79.01 Long term (current) use of anticoagulants; Z79.899 Other long term (current) drug therapy; Z82.49 Family history of ischemic heart disease and other diseases of the circulatory system; Z85.528 Personal history of other malignant neoplasm of kidney; Z90.5 Acquired absence of kidney; Z90.710 Acquired absence of both cervix and uterus; T50.2X5A Adverse effect of carbonic-anhydrase inhibitors, benzothiadiazides and other diuretics, initial encounter
CPT/HCPCS: 36415; 70450; 71045; 80048; 80053; 81001; 82728; 82962; 83036; 83605; 83615; 83735; 83930; 83935; 84100; 84300; 84484; 85007; 85025; 85027; 85379; 85610; 85730; 86141; 87040; 87081; 87426; 93970; 96361; 96365; G0378; J1100; J1815; J2001; J2543; J3490

== ENCOUNTER 2021-05-29 09:44 | Emergency (ER) | payer OTHER ==
[~2021-05-29] VITALS: Ht 152.4 cm; Wt 68.0 kg
[~2021-05-29 09:44] MED LIST changes: -CAPT25TA5 PO; -HYDR25TA4 PO; -LEVO500T21 PO
[2021-05-29] MEDS ORDERED: HYDROmorphone HCL 2 MG/ML VL IV ONE (10:45)
[2021-05-29] MEDS ORDERED: PROMETHAZINE HCL 25 MG/ML 1ML IV PRN (10:45)
[2021-05-29] MEDS ORDERED: SODIUM CHLORIDE 0.9% 1,000 ML IV ONE (10:45)
[2021-05-29] MEDS ORDERED: SODIUM CHLORIDE 0.9% 500 ML IVB ONE (10:45)
[2021-05-29 10:55] LABS: Basophils # (auto) 0 10 ^3/uL (0-0.2); Basophils % (auto) 0.6 % (0.0-2.0); Eosinophils # (auto) 0.2 10 ^3/uL (0-0.8); Eosinophils % (auto) 2.4 % (0.0-7.0); Hematocrit 40.6 % (36.0-46.0); Hemoglobin 13.9 g/dL (12.2-16.2); Lymphocytes # (auto) 1.6 10 ^3/uL (0.4-5.4); Lymphocytes % (auto) 21.7 % (10.0-50.0); Mean Corpuscular Hemoglobin 28.8 pg (28.0-32.0); Mean Corpuscular Hgb Conc. 34.2 g/dL (32.0-36.0); Mean Corpuscular Volume 84.2 fL (80.0-100.0); Monocytes # (auto) 0.4 10 ^3/uL (0-1.3); Monocytes % (auto) 5.4 % (0.0-12.0); Neutrophils # (auto) 5.2 10 ^3/uL (1.6-8.6); Neutrophils % (auto) 69.9 % (37.0-80.0); Nucleated Red Blood Cells % 0.1 %; Red Blood Cells 4.82 10^6/uL (4.0-5.20); Red Cell Distribution Width 14.2 % (11.8-14.3); White Blood Cell 7.4 10^3/uL (4.4-10.8)
[2021-05-29 11:13] LABS: BUN/Creatinine Ratio 17.1; Calcium 9.4 mg/dL (8.5-10.1); Magnesium 2.4 mg/dL (1.6-2.6); Potassium 3.8 mmol/L (3.5-5.1)
[2021-05-29 11:15] LABS: Bilirubin, Total 0.4 mg/dL (0.2-1.0); Total Protein 8.3 g/dL (6.4-8.2)
[2021-05-29 14:32] LABS: Urine Bacteria FEW /hpf (None Seen); Urine Blood Negative /uL (Negative); Urine Specific Gravity 1.006 (1.001-1.035); Urine WBC 1 /hpf (0 - 5)
[2021-05-29 15:00] VITALS: BP 105/57
== END 2021-05-29 15:01 | disposition home or self-care (01) ==
LOC: ER 09:44
DX: R53.1 Weakness (principal); E11.21 Type 2 diabetes mellitus with diabetic nephropathy; I10 Essential (primary) hypertension; R11.2 Nausea with vomiting, unspecified; E78.5 Hyperlipidemia, unspecified; Z87.11 Personal history of peptic ulcer disease; Z90.5 Acquired absence of kidney; Z88.6 Allergy status to analgesic agent; Z79.899 Other long term (current) drug therapy; Z79.84 Long term (current) use of oral hypoglycemic drugs; Z85.528 Personal history of other malignant neoplasm of kidney; Z90.89 Acquired absence of other organs; Z90.49 Acquired absence of other specified parts of digestive tract; Z90.710 Acquired absence of both cervix and uterus
CPT/HCPCS: 36415; 71045; 74176; 80053; 81001; 83690; 83735; 84443; 85025; 93005; 96361; 96374; 96375; 99285; J1170; J2550

== ENCOUNTER 2021-10-04 06:18 | Emergency (ER) | payer OTHER ==
[~2021-10-04] VITALS: Ht 152.4 cm; Wt 72.6 kg
[2021-10-04 10:04] VITALS: BP 166/73
[2021-10-04] MEDS ORDERED: FLUORESCEIN SOD OPTH TEST STRIP LEFTEYE ONE ×2 (10:30→10:45)
[2021-10-04] MEDS ORDERED: TETRACAINE HCL 0.5% OPTH(EYE) SOLN 4ML LEFTEYE ONE (10:30)
== END 2021-10-04 11:38 | disposition home or self-care (01) ==
LOC: ER 06:18
DX: H57.12 Ocular pain, left eye (principal); H54.40 Blindness, one eye, unspecified eye; I10 Essential (primary) hypertension; E11.9 Type 2 diabetes mellitus without complications; E78.5 Hyperlipidemia, unspecified; Z90.49 Acquired absence of other specified parts of digestive tract; Z90.710 Acquired absence of both cervix and uterus; Z79.899 Other long term (current) drug therapy; Z88.6 Allergy status to analgesic agent

== ENCOUNTER 2022-06-03 08:24 | Emergency (ER) | payer OTHER ==
[~2022-06-03] VITALS: Ht 152.4 cm; Wt 75.0 kg
[2022-06-03 08:30] VITALS: BP 132/69
[2022-06-03] MEDS ORDERED: METOCLOPRAMIDE HCL 5MG/ml INJ 2ml VIAL IV ONE (09:00)
[2022-06-03] MEDS ORDERED: ALUM & MAG HYDROX-SIMETH LIQ(MAALOX) 30 ML PO ONE (09:00)
[2022-06-03] MEDS ORDERED: DONNATAL 5ml ORAL Elix (BELLADONNA ALK-PHENOBARB) PO ONE (09:00)
[2022-06-03] MEDS ORDERED: PANTOPRAZOLE 40 MG TAB PO ONE (09:00)
[2022-06-03 09:29] LABS: Basophils # (auto) 0 10 ^3/uL (0-0.2); Basophils % (auto) 0.4 % (0.0-2.0); Eosinophils # (auto) 0.1 10 ^3/uL (0-0.8); Eosinophils % (auto) 1.3 % (0.0-7.0); Hematocrit 41.2 % (36.0-46.0); Hemoglobin 13.8 g/dL (12.2-16.2); Lymphocytes # (auto) 1.7 10 ^3/uL (0.4-5.4); Lymphocytes % (auto) 18.1 % (10.0-50.0); Mean Corpuscular Hemoglobin 27.3 pg (28.0-32.0); Mean Corpuscular Hgb Conc. 33.4 g/dL (32.0-36.0); Mean Corpuscular Volume 81.8 fL (80.0-100.0); Monocytes # (auto) 0.5 10 ^3/uL (0-1.3); Monocytes % (auto) 5.7 % (0.0-12.0); Neutrophils # (auto) 6.9 10 ^3/uL (1.6-8.6); Neutrophils % (auto) 74.5 % (37.0-80.0); Red Blood Cells 5.04 10^6/uL (4.0-5.20); Red Cell Distribution Width 14.8 % (11.8-14.3); White Blood Cell 9.3 10^3/uL (4.4-10.8)
[2022-06-03 09:47] LABS: Albumin 4.1 g/dL (3.4-5.0); Calcium 8.8 mg/dL (8.5-10.1); Magnesium 2.2 mg/dL (1.6-2.6)
[2022-06-03 09:50] LABS: BUN/Creatinine Ratio 17.1; Bilirubin, Total 0.8 mg/dL (0.2-1.0); Total Protein 8.7 g/dL (6.4-8.2)
[2022-06-03] MEDS ORDERED: IOHEXOL 300 MG/ML 100ML BOTTLE IJ ONE (10:16)
[2022-06-03 10:37] LABS: Urine Bacteria NONE SEEN /hpf (None Seen); Urine Blood TRACE /uL (Negative); Urine Specific Gravity 1.012 (1.001-1.035); Urine WBC <1 /hpf (0 - 5)
== END 2022-06-03 16:56 | disposition left against medical advice (07) ==
LOC: ER 08:24
DX: E11.22 Type 2 diabetes mellitus with diabetic chronic kidney disease (principal); I12.9 Hypertensive chronic kidney disease with stage 1 through stage 4 chronic kidney disease, or unspecified chronic kidney disease; N18.30 Chronic kidney disease, stage 3 unspecified; E78.5 Hyperlipidemia, unspecified; Z88.8 Allergy status to other drugs, medicaments and biological substances; Z87.11 Personal history of peptic ulcer disease; Z90.49 Acquired absence of other specified parts of digestive tract; Z90.710 Acquired absence of both cervix and uterus
CPT/HCPCS: 36415; 80053; 81001; 83690; 83735; 84443; 84484; 85025; 93005

== ENCOUNTER 2023-07-18 01:00 | Inpatient (IN) | payer OTHER ==
[~2023-07-18] VITALS: Ht 154.9 cm; Wt 75.0 kg
[~2023-07-18 01:00] MED LIST changes: -SUCR1SUS10 PO; +SUCR1SUS26 PO
[2023-07-18 01:45] LABS: Basophils # (auto) 0.1 10 ^3/uL (0-0.2); Eosinophils # (auto) 0.2 10 ^3/uL (0-0.8); Eosinophils % (auto) 1.8 % (0.0-7.0); Hematocrit 42.5 % (36.0-46.0); Hemoglobin 14.5 g/dL (12.2-16.2); Lymphocytes # (auto) 3.7 10 ^3/uL (0.4-5.4); Lymphocytes % (auto) 30.4 % (10.0-50.0); Mean Corpuscular Hemoglobin 28.3 pg (28.0-32.0); Mean Corpuscular Volume 83.2 fL (80.0-100.0); Monocytes # (auto) 0.8 10 ^3/uL (0-1.3); Monocytes % (auto) 6.7 % (0.0-12.0); Neutrophils # (auto) 7.3 10 ^3/uL (1.6-8.6); Neutrophils % (auto) 60.1 % (37.0-80.0); Nucleated Red Blood Cells % 0.1 %; Red Blood Cells 5.12 10^6/uL (4.0-5.20); Red Cell Distribution Width 14.7 % (11.8-14.3); White Blood Cell 12.1 10^3/uL (4.4-10.8)
[2023-07-18 01:55] LABS: Alanine Aminotransferase 35 U/L (7-40); Albumin 4.6 g/dL (3.2-4.8); Alkaline Phosphatase 80 U/L (46-116); Anion Gap 8.1 (5-15); Aspartate Aminotransferase 31 U/L (13-40); BUN/Creatinine Ratio 17.2 (10.0-20.0); Bilirubin, Total 0.4 mg/dL (0.2-1.0); Blood Urea Nitrogen 20 mg/dL (9-23); Calcium 9.8 mg/dL (8.7-10.4); Carbon Dioxide 25.9 mmol/L (20-30); Chloride 100 mmol/L (98-107); Glucose 151 mg/dL (74-106); Magnesium 1.8 mg/dL (1.6-2.6); Potassium 3.3 mmol/L (3.5-5.1); Sodium 134 mmol/L (136-145); Total Protein 8.2 g/dL (5.7-8.2)
[2023-07-18 02:02] LABS: INR 0.93 (0.9-1.15); Partial Thromboplastin Time 23.2 SEC (24.5-34.5); Prothrombin Time 9.8 sec (9.3-11.8)
[2023-07-18] MEDS ORDERED: SODIUM CHLORIDE 0.9% 1,000 ML IV ONE (02:45)
[2023-07-18] MEDS ORDERED: MECLIZINE HCL 25 MG TAB PO ONE (02:45)
[2023-07-18] MEDS ORDERED: ONDANSETRON HCL 4 MG/2 ML VIAL IV ONE (02:45)
[2023-07-18 03:22] LABS: Urine Bacteria FEW /hpf (None Seen); Urine Blood TRACE /uL (Negative); Urine Clarity Clear (Clear); Urine Color Colorless (Yellow); Urine Protein, UAD TRACE (Negative); Urine Specific Gravity 1.015 (1.001-1.035); Urine Urobilinogen Normal (Negative); Urine WBC 6 /hpf (0 - 5)
[2023-07-18] MEDS ORDERED: ZOFR4T PO ×2 (05:09)
[2023-07-18] MEDS ORDERED: MECL1TAB32 PO ×2 (05:09)
[2023-07-18] MEDS ORDERED: diazePAM 5 MG TAB PO ONE (06:00)
[2023-07-18 08:34] VITALS: PULSE 78
[2023-07-18 10:13] VITALS: PULSE 72; RESP 19; O2SAT 96
[2023-07-18] MEDS ORDERED: cefTRIAXone 1GM/50ML D5W 50 ML IV ONE (10:30)
[2023-07-18] MEDS ORDERED: POTASSIUM EFFERVESENT TAB 25 MEQ PO ONE (10:30)
[2023-07-18] MEDS ORDERED: ONDANSETRON HCL 4 MG/2 ML VIAL IV PRN (14:15)
[2023-07-18] MEDS ORDERED: DEXTROSE (50%) 50ML SYRG IV PRN (14:15)
[2023-07-18] MEDS ORDERED: MORPHINE SULFATE INJ 2 MG/ml SYRG IV PRN (14:15)
[2023-07-18] MEDS ORDERED: ACETAMINOPHEN 325 MG TAB PO PRN ×2 (14:15)
[2023-07-18] MEDS ORDERED: DOCUSATE SOD 100 MG CAP PO PRN (14:15)
[2023-07-18] MEDS ORDERED: HYDROcodone-ACET 5/325MG TAB PO PRN (14:15)
[2023-07-18] MEDS: SODIUM CHLORIDE 0.9% 1,000 ML IV SCH (14:15)
[2023-07-18] MEDS ORDERED: NITROGLYCERIN 0.4 MG SL TAB SL PRN (14:15)
[2023-07-18] MEDS: InsuLIN REG 1unit/0.01ml Soln (100units/ml) SC SCH ×2 (17:00→22:17)
[2023-07-18] MEDS: ACCU-CHEK COMFORT CURVE STRIP VI SCH ×2 (17:00→22:17)
[2023-07-18 19:35] VITALS: PULSE 69; RESP 18; O2SAT 97
[2023-07-18] MEDS: METOPROLOL TARTRATE 50 MG TAB PO SCH (22:16)
[2023-07-18] MEDS: MECLIZINE HCL 25 MG TAB PO SCH (22:16)
[2023-07-19] VITALS (7 sets, daily range): BP systolic 118–160; BP diastolic 56–82; PULSE 57–68; RESP 18; TEMP 97.9–98.9; O2SAT 91–98
[2023-07-19] MEDS ORDERED: HYDR25TA5 PO ×2 (00:58)
[2023-07-19] MEDS ORDERED: ROSU1TAB14 PO ×2 (00:58)
[2023-07-19] MEDS ORDERED: CAPT25TA5 PO ×3 (00:58→14:20)
[2023-07-19] MEDS ORDERED: SITA25TA3 PO ×2 (00:58)
[2023-07-19] MEDS: MECLIZINE HCL 25 MG TAB PO SCH ×2 (05:26→14:11)
[2023-07-19 05:50] LABS: Basophils # (auto) 0 10 ^3/uL (0-0.2); Basophils % (auto) 0.3 % (0.0-2.0); Eosinophils # (auto) 0.1 10 ^3/uL (0-0.8); Eosinophils % (auto) 1.5 % (0.0-7.0); Hematocrit 39.9 % (36.0-46.0); Hemoglobin 13.4 g/dL (12.2-16.2); Lymphocytes # (auto) 2.2 10 ^3/uL (0.4-5.4); Lymphocytes % (auto) 23.8 % (10.0-50.0); Mean Corpuscular Hemoglobin 28.2 pg (28.0-32.0); Mean Corpuscular Hgb Conc. 33.7 g/dL (32.0-36.0); Mean Corpuscular Volume 83.8 fL (80.0-100.0); Monocytes # (auto) 0.6 10 ^3/uL (0-1.3); Monocytes % (auto) 6.4 % (0.0-12.0); Neutrophils # (auto) 6.3 10 ^3/uL (1.6-8.6); Nucleated Red Blood Cells % 0.1 %; Red Blood Cells 4.76 10^6/uL (4.0-5.20); Red Cell Distribution Width 14.5 % (11.8-14.3); White Blood Cell 9.2 10^3/uL (4.4-10.8)
[2023-07-19] MEDS: ACCU-CHEK COMFORT CURVE STRIP VI SCH ×3 (06:14→16:47)
[2023-07-19] MEDS: InsuLIN REG 1unit/0.01ml Soln (100units/ml) SC SCH ×3 (06:15→16:47)
[2023-07-19 06:36] LABS: Alanine Aminotransferase 30 U/L (7-40); Alkaline Phosphatase 63 U/L (46-116); Anion Gap 7.5 (5-15); Aspartate Aminotransferase 28 U/L (13-40); BUN/Creatinine Ratio 15.4 (10.0-20.0); Blood Urea Nitrogen 16 mg/dL (9-23); Calcium 9.2 mg/dL (8.5-10.1); Carbon Dioxide 26.5 mmol/L (20-30); Chloride 106 mmol/L (98-107); Glucose 134 mg/dL (74-106); Potassium 3.7 mmol/L (3.5-5.1); Sodium 140 mmol/L (136-145)
[2023-07-19 06:37] LABS: Bilirubin, Total 0.5 mg/dL (0.2-1.0); Total Protein 7.2 g/dL (5.7-8.2)
[2023-07-19] MEDS: SODIUM CHLORIDE 0.9% 1,000 ML IV SCH (06:55)
[2023-07-19] MEDS ORDERED: cefTRIAXone 1GM/50ML D5W 50 ML IV SCH (09:00)
[2023-07-19] MEDS: METOPROLOL TARTRATE 50 MG TAB PO SCH (09:08)
[2023-07-19] MEDS ORDERED: ENOXAPARIN SOD 40 MG/0.4 ML SYRINGE SC SCH (10:00)
[2023-07-19] MEDS ORDERED: PANTOPRAZOLE 40 MG TAB PO SCH (10:00)
[2023-07-19] MEDS ORDERED: CEFD300C2 PO ×2 (14:20)
[2023-07-19] MEDS ORDERED: MECL1TAB32 PO ×2 (14:20)
== END 2023-07-19 18:20 | disposition home health service (06) | DRG 149 ==
LOC: ER 01:00 → TELE 14:16 → TELE-WESTW 22:47
PROVIDERS: ADMIT Hospitalist; ATTEND Hospitalist
DX: R42 Dizziness and giddiness (principal); N39.0 Urinary tract infection, site not specified; E11.9 Type 2 diabetes mellitus without complications; K21.9 Gastro-esophageal reflux disease without esophagitis; I11.9 Hypertensive heart disease without heart failure; Z90.5 Acquired absence of kidney; Z88.6 Allergy status to analgesic agent; Z88.8 Allergy status to other drugs, medicaments and biological substances
CPT/HCPCS: 36415; 70450; 70545; 70547; 70551; 71045; 74176; 80053; 81001; 82962; 83735; 84484; 85025; 85610; 85730; 87086; 93005; 93306; 96361; 96365; 96375; 97163; G0378; J0696; J1815; J2405

== ENCOUNTER 2023-07-29 11:18 | Inpatient (IN) | payer OTHER ==
[~2023-07-29] VITALS: Ht 152.4 cm; Wt 73.4 kg
[~2023-07-29 11:18] MED LIST changes: +CAPT25TA5 PO; +CEFD300C2 PO; +HYDR25TA5 PO; +MECL1TAB32 PO; +ROSU1TAB14 PO; +SITA25TA3 PO; +ZOFR4T PO
[2023-07-29 11:51] LABS: Basophils # (auto) 0 10 ^3/uL (0-0.2); Basophils % (auto) 0.6 % (0.0-2.0); Eosinophils # (auto) 0.1 10 ^3/uL (0-0.8); Eosinophils % (auto) 1.7 % (0.0-7.0); Hemoglobin 14.9 g/dL (12.2-16.2); Lymphocytes # (auto) 1.9 10 ^3/uL (0.4-5.4); Lymphocytes % (auto) 22.2 % (10.0-50.0); Mean Corpuscular Hemoglobin 28.3 pg (28.0-32.0); Mean Corpuscular Hgb Conc. 33.9 g/dL (32.0-36.0); Mean Corpuscular Volume 83.3 fL (80.0-100.0); Monocytes # (auto) 0.6 10 ^3/uL (0-1.3); Monocytes % (auto) 6.5 % (0.0-12.0); Nucleated Red Blood Cells % 0.3 %; Red Blood Cells 5.27 10^6/uL (4.0-5.20); Red Cell Distribution Width 14.6 % (11.8-14.3); White Blood Cell 8.7 10^3/uL (4.4-10.8)
[2023-07-29 12:00] VITALS: PULSE 56; RESP 16; O2SAT 95
[2023-07-29] MEDS ORDERED: ONDANSETRON HCL 4 MG/2 ML VIAL IV ONE (12:00)
[2023-07-29 12:17] LABS: Alanine Aminotransferase 58 U/L (7-40); Albumin 4.5 g/dL (3.2-4.8); Alkaline Phosphatase 89 U/L (46-116); Anion Gap 9 (5-15); Aspartate Aminotransferase 55 U/L (13-40); BUN/Creatinine Ratio 18.8 (10.0-20.0); Blood Urea Nitrogen 22 mg/dL (9-23); Calcium 9.9 mg/dL (8.7-10.4); Carbon Dioxide 24 mmol/L (20-30); Chloride 103 mmol/L (98-107); Glucose 153 mg/dL (74-106); Potassium 3.5 mmol/L (3.5-5.1); Sodium 136 mmol/L (136-145)
[2023-07-29 12:18] LABS: Bilirubin, Total 0.7 mg/dL (0.2-1.0)
[2023-07-29] MEDS ORDERED: SODIUM CHLORIDE 0.9% 1,000 ML IV ONE ×2 (12:30)
[2023-07-29] MEDS ORDERED: hydrALAZINE HCL 20 MG/ML VL IV ONE (13:45)
[2023-07-29 15:26] LABS: Urine Bacteria NONE SEEN /hpf (None Seen); Urine Blood Negative /uL (Negative); Urine Clarity Clear (Clear); Urine Color Colorless (Yellow); Urine Protein, UAD Negative (Negative); Urine Urobilinogen Normal (Negative); Urine WBC 7 /hpf (0 - 5); Urine pH 6.5 (5.0-8.0)
[2023-07-29] MEDS ORDERED: ACETAMINOPHEN 325 MG TAB PO PRN (17:00)
[2023-07-29] MEDS ORDERED: NITROGLYCERIN 0.4 MG SL TAB SL PRN (17:00)
[2023-07-29] MEDS ORDERED: MORPHINE SULFATE INJ 2 MG/ml SYRG IV PRN ×2 (17:00)
[2023-07-29] MEDS ORDERED: ONDANSETRON HCL 4 MG/2 ML VIAL IV PRN (17:00)
[2023-07-29] MEDS ORDERED: HYDROcodone-ACET 5/325MG TAB PO PRN (17:00)
[2023-07-29] MEDS: MECLIZINE HCL 25 MG TAB PO PRN (18:51)
[2023-07-29 20:00] VITALS: PULSE 65; RESP 20; O2SAT 97
[2023-07-30 08:00] VITALS: PULSE 72; RESP 18; TEMP 98; O2SAT 95
[2023-07-30 09:28] LABS: Basophils # (auto) 0 10 ^3/uL (0-0.2); Basophils % (auto) 0.4 % (0.0-2.0); Eosinophils # (auto) 0.1 10 ^3/uL (0-0.8); Eosinophils % (auto) 1.9 % (0.0-7.0); Hematocrit 39.7 % (36.0-46.0); Hemoglobin 13.5 g/dL (12.2-16.2); Lymphocytes # (auto) 1.9 10 ^3/uL (0.4-5.4); Lymphocytes % (auto) 24.8 % (10.0-50.0); Mean Corpuscular Hemoglobin 28.3 pg (28.0-32.0); Mean Corpuscular Hgb Conc. 33.9 g/dL (32.0-36.0); Mean Corpuscular Volume 83.4 fL (80.0-100.0); Monocytes # (auto) 0.5 10 ^3/uL (0-1.3); Monocytes % (auto) 6.7 % (0.0-12.0); Neutrophils % (auto) 66.2 % (37.0-80.0); Red Blood Cells 4.76 10^6/uL (4.0-5.20); Red Cell Distribution Width 14.8 % (11.8-14.3); White Blood Cell 7.5 10^3/uL (4.4-10.8)
[2023-07-30] MEDS ORDERED: ENOXAPARIN SOD 40 MG/0.4 ML SYRINGE SC SCH (10:00)
[2023-07-30] MEDS: MECLIZINE HCL 25 MG TAB PO PRN (11:04)
[2023-07-30 11:13] LABS: Alanine Aminotransferase 42 U/L (7-40); Alkaline Phosphatase 70 U/L (46-116); BUN/Creatinine Ratio 13.3 (10.0-20.0); Blood Urea Nitrogen 14 mg/dL (9-23); Calcium 9.2 mg/dL (8.5-10.1); Carbon Dioxide 25 mmol/L (20-30); Glucose 118 mg/dL (74-106)
[2023-07-30 11:14] LABS: Albumin 3.9 g/dL (3.2-4.8); Aspartate Aminotransferase 30 U/L (13-40); Bilirubin, Total 0.6 mg/dL (0.2-1.0); Total Protein 7.2 g/dL (5.7-8.2)
[2023-07-30 12:00] LABS: Anion Gap 9 (5-15); Chloride 107 mmol/L (98-107); Potassium 3.4 mmol/L (3.5-5.1); Sodium 141 mmol/L (136-145)
[2023-07-30] MEDS ORDERED: MECL1TAB31 PO ×4 (13:25)
[2023-07-30 17:00] VITALS: BP 153/66; PULSE 65; RESP 12; O2SAT 96
[2023-07-30] MEDS ORDERED: DIAZ-681 PO ×2 (17:07)
== END 2023-07-30 17:30 | disposition home health service (06) | DRG 149 ==
LOC: ER 11:18 → TELE 17:01
PROVIDERS: ADMIT Internal Medicine; ATTEND Internal Medicine
DX: H81.10 Benign paroxysmal vertigo, unspecified ear (principal); E11.65 Type 2 diabetes mellitus with hyperglycemia; I10 Essential (primary) hypertension; K21.9 Gastro-esophageal reflux disease without esophagitis; Z87.11 Personal history of peptic ulcer disease; Z88.6 Allergy status to analgesic agent; Z90.5 Acquired absence of kidney; Z82.49 Family history of ischemic heart disease and other diseases of the circulatory system; Z90.710 Acquired absence of both cervix and uterus; Z90.49 Acquired absence of other specified parts of digestive tract; Z88.8 Allergy status to other drugs, medicaments and biological substances
CPT/HCPCS: 36415; 70450; 71045; 80053; 81001; 84484; 85025; 96361; 96374; 96375; 97163; G0378; J2405

== ENCOUNTER 2024-03-23 10:21 | Inpatient (IN) | payer OTHER ==
[~2024-03-23] VITALS: Ht 154.9 cm; Wt 75.0 kg
[~2024-03-23 10:21] MED LIST changes: +DIAZ-681 PO; +MECL-90 PO; -MECL1TAB32 PO; -METF-370 PO; -OMEP20TA PO; -PANT40T PO; -ROSU1TAB14 PO; +ROSU20TA56 PO; -SUCR1SUS26 PO; -ZOFR4T PO
[2024-03-23] MEDS: SODIUM CHLORIDE 0.9% 1,000 ML IV ONE ×2 (10:43→10:44)
[2024-03-23 10:59] LABS: Basophils # (auto) 0 10 ^3/uL (0-0.2); Basophils % (auto) 0.3 % (0.0-2.0); Eosinophils # (auto) 0.1 10 ^3/uL (0-0.8); Eosinophils % (auto) 0.7 % (0.0-7.0); Hematocrit 38.2 % (36.0-46.0); Lymphocytes # (auto) 1.2 10 ^3/uL (0.4-5.4); Lymphocytes % (auto) 10.9 % (10.0-50.0); Mean Corpuscular Hemoglobin 27.9 pg (28.0-32.0); Monocytes # (auto) 0.9 10 ^3/uL (0-1.3); Monocytes % (auto) 8.1 % (0.0-12.0); Neutrophils # (auto) 8.5 10 ^3/uL (1.6-8.6); Nucleated Red Blood Cells % 0.1 %; Red Blood Cells 4.66 10^6/uL (4.0-5.20); Red Cell Distribution Width 14.4 % (11.8-14.3); White Blood Cell 10.6 10^3/uL (4.4-10.8)
[2024-03-23 11:04] VITALS: PULSE 71; RESP 19; O2SAT 97
[2024-03-23 11:22] LABS: Chloride 94 mmol/L (98-107); Potassium 3.5 mmol/L (3.5-5.1); Sodium 126 mmol/L (136-145)
[2024-03-23 11:23] LABS: Anion Gap 9 (5-15); Calcium 9.3 mg/dL (8.5-10.1); Carbon Dioxide 23 mmol/L (20-30)
[2024-03-23 11:28] LABS: BUN/Creatinine Ratio 14.2 (10.0-20.0); Blood Urea Nitrogen 23 mg/dL (9-23); Glucose 134 mg/dL (74-106)
[2024-03-23 11:43] LABS: Urine Bacteria None Seen /hpf (None Seen)
[2024-03-23 11:58] LABS: Urine Blood TRACE /uL (Negative); Urine Clarity Turbid (Clear); Urine Color Yellow (Yellow); Urine Hyaline Cast FEW /lpf (0 - 2); Urine Mucus FEW (None Seen); Urine Protein, UAD 1+ (Negative); Urine Specific Gravity 1.012 (1.001-1.035); Urine Urobilinogen Normal (Negative); Urine WBC 24 /hpf (0 - 5); Urine pH 5.5 (5.0-9.0)
[2024-03-23] MEDS ORDERED: MORPHINE SULFATE INJ 2 MG/ml SYRG IV PRN ×2 (15:00)
[2024-03-23] MEDS ORDERED: NITROGLYCERIN 0.4 MG SL TAB SL PRN (15:00)
[2024-03-23] MEDS ORDERED: ONDANSETRON HCL 4 MG/2 ML VIAL IV PRN (15:00)
[2024-03-23] MEDS ORDERED: HYDROcodone-ACET 5/325MG TAB PO PRN (15:00)
[2024-03-23] MEDS ORDERED: ACETAMINOPHEN 325 MG TAB PO PRN (15:00)
[2024-03-23] MEDS: cefTRIAXone 1GM/50ML D5W 50 ML IV SCH (17:19)
[2024-03-23] MEDS: SODIUM CHLORIDE 0.9% 1,000 ML IV SCH (17:19)
[2024-03-23 22:36] VITALS: BP 117/44; PULSE 70; RESP 18; TEMP 98.9; O2SAT 97
[2024-03-24] VITALS (7 sets, daily range): BP systolic 103–125; BP diastolic 32–51; PULSE 63–76; RESP 16–19; TEMP 97.9–99.1; O2SAT 96–100
[2024-03-24] MEDS: cefTRIAXone 1GM/50ML D5W 50 ML IV SCH (09:44)
[2024-03-24] MEDS: ENOXAPARIN SOD 30 MG/0.3 ML SYRINGE SC SCH (09:48)
[2024-03-24] MEDS: DOCUSATE SOD 100 MG CAP PO PRN (20:18)
[2024-03-25] VITALS (8 sets, daily range): BP systolic 100–148; BP diastolic 51–65; PULSE 60–88; RESP 16–20; TEMP 97.2–98.3; O2SAT 98–100
[2024-03-25 16:01] LABS: Chloride 105 mmol/L (98-107); Potassium 3.8 mmol/L (3.5-5.1); Sodium 138 mmol/L (136-145)
[2024-03-25 16:02] LABS: Anion Gap 6 (5-15); Calcium 8.9 mg/dL (8.5-10.1); Carbon Dioxide 27 mmol/L (20-30)
[2024-03-25 16:07] LABS: BUN/Creatinine Ratio 12.5 (10.0-20.0); Blood Urea Nitrogen 13 mg/dL (9-23); Glucose 117 mg/dL (74-106)
[2024-03-25] MEDS: DOCUSATE SOD 100 MG CAP PO SCH (21:29)
[2024-03-25] MEDS: SENNA 8.6 MG TAB PO SCH (21:29)
[2024-03-26 00:48] VITALS: BP 124/49; PULSE 68; RESP 15; TEMP 98.3; O2SAT 98
[2024-03-26 04:30] VITALS: BP 105/50; PULSE 71; RESP 16; TEMP 97.8; O2SAT 96
[2024-03-26 05:31] LABS: Basophils # (auto) 0 10 ^3/uL (0-0.2); Basophils % (auto) 0.4 % (0.0-2.0); Eosinophils # (auto) 0.1 10 ^3/uL (0-0.8); Eosinophils % (auto) 1.7 % (0.0-7.0); Hematocrit 36.6 % (36.0-46.0); Hemoglobin 12.2 g/dL (12.2-16.2); Lymphocytes # (auto) 2.2 10 ^3/uL (0.4-5.4); Lymphocytes % (auto) 32.5 % (10.0-50.0); Mean Corpuscular Hemoglobin 27.7 pg (28.0-32.0); Mean Corpuscular Hgb Conc. 33.4 g/dL (32.0-36.0); Monocytes # (auto) 0.8 10 ^3/uL (0-1.3); Monocytes % (auto) 12.6 % (0.0-12.0); Neutrophils # (auto) 3.5 10 ^3/uL (1.6-8.6); Neutrophils % (auto) 52.8 % (37.0-80.0); Nucleated Red Blood Cells % 0.1 %; Red Blood Cells 4.41 10^6/uL (4.0-5.20); Red Cell Distribution Width 14.4 % (11.8-14.3); White Blood Cell 6.7 10^3/uL (4.4-10.8)
[2024-03-26 05:50] LABS: Anion Gap 6 (5-15); Carbon Dioxide 26 mmol/L (20-30); Chloride 105 mmol/L (98-107); Potassium 3.6 mmol/L (3.5-5.1); Sodium 137 mmol/L (136-145)
[2024-03-26 05:52] LABS: Calcium 9.2 mg/dL (8.7-10.4)
[2024-03-26 05:56] LABS: Glucose 116 mg/dL (74-106)
[2024-03-26 05:57] LABS: Blood Urea Nitrogen 14 mg/dL (9-23); Magnesium 1.7 mg/dL (1.6-2.6)
[2024-03-26 08:35] VITALS: BP 126/69; PULSE 78; RESP 17; TEMP 98.1; O2SAT 98
[2024-03-26] MEDS ORDERED: CEPH500C PO (11:33)
[2024-03-26] MEDS ORDERED: DOCU-94 PO (11:33)
[2024-03-26] MEDS ORDERED: SENN-58 PO (11:33)
[2024-03-26 12:26] VITALS: BP 105/65; PULSE 67; RESP 16; TEMP 98.2; O2SAT 95
== END 2024-03-26 13:15 | disposition home or self-care (01) | DRG 640 ==
LOC: ER 10:21 → TELE 15:04 → TELE-WESTW 22:17
PROVIDERS: ADMIT Internal Medicine; ATTEND Internal Medicine
DX: E87.1 Hypo-osmolality and hyponatremia (principal); N17.0 Acute kidney failure with tubular necrosis; N39.0 Urinary tract infection, site not specified; E78.5 Hyperlipidemia, unspecified; E86.9 Volume depletion, unspecified; K59.00 Constipation, unspecified; I12.9 Hypertensive chronic kidney disease with stage 1 through stage 4 chronic kidney disease, or unspecified chronic kidney disease; E11.22 Type 2 diabetes mellitus with diabetic chronic kidney disease; N18.9 Chronic kidney disease, unspecified; T50.2X5A Adverse effect of carbonic-anhydrase inhibitors, benzothiadiazides and other diuretics, initial encounter; E86.0 Dehydration; Z88.6 Allergy status to analgesic agent; Z79.899 Other long term (current) drug therapy; Z82.49 Family history of ischemic heart disease and other diseases of the circulatory system; Z90.49 Acquired absence of other specified parts of digestive tract; Z90.710 Acquired absence of both cervix and uterus; Z87.891 Personal history of nicotine dependence; Z87.11 Personal history of peptic ulcer disease; Z79.84 Long term (current) use of oral hypoglycemic drugs
CPT/HCPCS: 36415; 80048; 81001; 83605; 83735; 85025; 87040; 87086; 93970; 96360; 97110; 97116; 97163; 97530; G0378

== ENCOUNTER 2025-02-23 17:11 | Emergency (ER) | payer OTHER ==
[~2025-02-23] VITALS: Ht 157.5 cm; Wt 75.0 kg
[~2025-02-23 17:11] MED LIST changes: -CEFD300C2 PO; +CEPH500C PO; -DIAZ-681 PO; +DOCU-94 PO; -HYDR25TA5 PO; -MECL-90 PO; +SENN-58 PO
[2025-02-23] MEDS: ACETAMINOPHEN 325 MG TAB PO ONE (17:29)
--- NOTE | 2025-02-23 18:02 | ED.PDOC ---
History of Present Illness HPI Comments 75-year-old female who comes in with chief complaint of nausea, vomiting and diarrhea. The patient also states that she has been having some weakness as well as a cough. Upon arrival to the emergency department's, she states that the symptoms have been going on for at least two days. The patient had a tempe rature of a 102.3 upon arrival to the emergency department's. The patient was immediately given some acetaminophen for the fever. She denies any one else in the house being somewhat ill. She is currently in a wheelchair and feeling somewhat weak. Chief Complaint: Flu like Time Seen by MD: 17:15 Primary Care Provider: UNKNOWN Reviewed Notes: Nurses Notes, Medications, Allergies (Allergies to aspirin) Allergies: Coded Allergies: Aspirin (Verified Allergy, Severe, 08/01/19) Home Meds Active Scripts Senna (Senokot) 8.6 Mg Tab, 1 TAB PO BID, #20 TAB Prov:MICAELA BOSTON MD 03/26/24 Docusate Sodium (Colace) 100 Mg Cap, 1 CAP PO BID, #30 CAP Prov:MICAELA BOSTON MD 03/26/24 Cephalexin Monohydrate (Cephalexin) 500 Mg Cap, 1 CAP PO TID for 3 Days, #9 CAP Prov:MICAELA BOSTON MD 03/26/24 Captopril (Captopril) 25 Mg Tab, 1 TAB PO BID, #30 TAB Prov:WNEDIE LINARES MD 07/19/23 Reported Medications Sitagliptin Phosphate (Januvia) 25 Mg Tab, 1 TAB PO DAILY 07/19/23 Rosuvastatin Calcium (Rosuvastatin Calcium) 20 Mg Tab, 1 TAB PO DAILY 07/19/23 Metoprolol Tartrate (Metoprolol Tartrate) 50 Mg Tab, 50 MG PO BID for 30 Days, MG 04/13/15 Information Source: Patient Mode of Arrival: Wheelchair Severity: Moderate Timing: Days Duration: Since onset Prehospital treatment: None Associated signs and symptoms Nausea, vomiting and diarrhea with a headache and cough Past Medical History PAST MEDICAL HISTORY: Cancer, DM, High Lipids, HTN, PUD, UTI'S Surgical History: Appendectomy, Cholecystectomy, Hernia Repair, Hysterectomy 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 History Family History Family History: Family hx of HTN Social History Smoker: Non-Smoker Alcohol: Rarely Drugs: Denies Drug Use Lives In: Home Constitutional: reports: weakness; denies: chills, diaphoresis, fatigue, fever, malaise, sweats, others EENTM: denies: blurred vision, double vision, ear bleeding, ear discharge, ear drainage, ear pain, ear ringing, eye pain, eye redness, hearing loss, mouth pain, mouth swelling, nasal discharge, nose bleeding, nose congestion, nose pain, photophobia, tearing, throat pain, throat swelling, voice changes, others Respiratory: denies: cough, hemoptysis, orthopnea, SOB at rest, shortness of breath, SOB with excertion, stridor, wheezing, others Cardiovascular: denies: chest pain, dizzy spells, diaphoresis, Dyspnea on exertion, edema, irregular heart beat, left arm pain, lightheadedness, palpitations, PND, syncope, others Gastrointestinal: reports: diarrhea, nausea, vomiting; denies: abdomen distended, abdominal pain, blood streaked bowels, constipated, dysphagia, difficulty swallowing, hematemesis, melena, poor appetite, poor fluid intake, rectal bleeding, rectal pain, others Genitourinary: denies: abnormal vagina bleeding, burning, dyspareunia, dysuria, flank pain, frequency, hematuria, incontinence, pain, , vagina discharg e, urgency, others Neurological: reports: headache; denies: dizziness, fainting, left sided numbness, left sided weakness, numbness, paresthesia, pre-existing deficit, right sided numbness, right sided weakness, seizure, speech problems, tingling, tremors, weakness, others Musculoskeletal: denies: back pain, gout, joint pain, joint swelling, muscle pain, muscle stiffness, neck pain, others Integumetry: denies: bruises, change in color, change in hair/nails, dryness, laceration, lesions, lumps, rash, wounds, others Allergic/Immunocompromised: denies: Difficulty Healing, Frequent Infections, Hives, Itching, others Hematologic/Lymphatic: denies: anemia, blood clots, easy bleeding, easy bruising, swollen glands, others Endocrine: denies: excessive hunger, excessive sweating, excessive thirst, excessive urination, flushing, intolerance to cold, intolerance to heat, unexplained weight gain, unexplained weight loss, others Psychiatric: denies: anxiety, bipolar disorder, depression, hopeless, panic disorder, schizophrenia, sleepless, suicidal, others Physical Exam General Appearance: Moderate Distress, Obese HEENT: Normal ENT Inspection, Pharynx Normal, TMs Normal Neck: Full Range of Motion, Non-Tender, Normal, Normal Inspection Respiratory: Chest Non-Tender, Lungs Clear, No Accessory Muscle Use, No Respiratory Distress, Normal Breath Sounds Cardiovascular: No Edema, No JVD, No Murmur, No Gallop, Normal Peripheral Pulses, Regular Rate/Rhythm Breast Exam: Deferred Gastrointestinal: No Organomegaly, Non Tender, No Pulsatile Mass, Normal Bowel Sounds, Soft Genitalia: Deferred Pelvic: Deferred Rectal: Deferred Extremities: No calf tenderness, Normal capillary refill, Normal inspection, Normal range of motion, Non-tender, No pedal edema Musculoskeletal : Apperance: Normal Neurologic: renal nurse II-XII nml as Tested, Motor Weakness, Normal Affect, Normal Mood, No Sensory Deficits Cerebellar Function: Normal Reflexes: Normal Skin: Dry, Normal Color, Warm Lymphatic: No Adenopathy Was a procedure done? Was a procedure done?: No Differential Dx Considerations may include: Viral syndrome, generalized weakness, electrolyte imbalance, COVID, influenza a or influenza B, dehydration X-Ray, Labs, Meds, VS Vital Signs Date Time Temp Pulse Resp B/P (MAP) Pulse Ox O2 Delivery O2 Flow Rate FiO2 02/23/25 17:29 102.3 02/23/25 17:20 102.3 96 18 122/75 (91) 93 102.3 Lab Test 02/23/25 18:02 02/23/25 17:51 Range/Units White Blood Count 8.8 4.4-10.8 10^3/uL Red Blood Count 4.73 4.0-5.20 10^6/uL Hemoglobin 13.3 12.2-16.2 g/dL Hematocrit 39.5 36.0-46.0 % Mean Corpuscular Volume 83.4 80.0-100.0 fL Mean Corpuscular Hemoglobin 28.1 28.0-32.0 pg Mean Corpuscular Hemoglobin Concent 33.7 32.0-36.0 g/dL Red Cell Distribution Width 14.6 H 11.8-14.3 % Platelet Count 208 140-450 10^3/uL Mean Platelet Volume 7.5 6.9-10.8 fL Neutrophils (%) (Auto) 86.0 H 37.0-80.0 % Lymphocytes (%) (Auto) 7.6 L 10.0-50.0 % Monocytes (%) (Auto) 6.1 0.0-12.0 % Eosinophils (%) (Auto) 0.1 0.0-7.0 % Basophils (%) (Auto) 0.2 0.0-2.0 % Neutrophils # (Auto) 7.6 1.6-8.6 10 ^3/uL Lymphocytes # (Auto) 0.7 0.4-5.4 10 ^3/uL Monocytes # (Auto) 0.5 0-1.3 10 ^3/uL Eosinophils # (Auto) 0 0-0.8 10 ^3/uL Basophils # (Auto) 0 0-0.2 10 ^3/uL Nucleated Red Blood Cells 0.0 % Lactic Acid Level 1.2 0.4-2.0 mmol/L Sodium Level 129 L 136-145 mmol/L Potassium Level 4.4 3.5-5.1 mmol/L Chloride Level 99 98-107 mmol/L Carbon Dioxide Level 21 20-31 mmol/L Anion Gap 9 5-15 Blood Urea Nitrogen 9 9-23 mg/dL Creatinine 0.97 0.550-1.02 mg/dL Glomerular Filtration Rate Calc 60 >90 mL/min BUN/Creatinine Ratio 9.3 L 10.0-20.0 Serum Glucose 152 H 74-106 mg/dL Calcium Level 9.4 8.7-10.4 mg/dL Current Medications Medications (Trade) Dose Ordered Sig/Lacie Route Start Time Stop Time Status Last Admin Acetaminophen (Tylenol Tablet) 650 mg ONCE ONCE PO 02/23/25 17:30 02/23/25 17:31 DC 02/23/25 17:29 The chest x-ray is negative The CBC and chemistry panel are within normal limits The patient's received the acetaminophen at 650 mg by mouth We are currently awaiting a repeat temperature on this patient We did contact the hospitalist and he will come and evaluate the patient and make the final disposition. We are currently awaiting the COVID test and influenza results. At this time the patient will be dispositioned by the [facility] physician Images Reviewed?: Images reviewed and evaluated by me Time of 1ST Reevaluation: 18:02 Reevaluation 1ST: Unchanged Patient Education/Counseling: Diagnosis, Treatment, Prognosis Family Education/Counseling: No Family Present Departure 1 Departure Time of Disposition: 21:08 Impression: Primary Impression: CKD (chronic kidney disease) stage 3, GFR 30-59 ml/min Qualified Codes: N18.31 - Chronic kidney disease, stage 3a Additional Impression: Fever Qualified Codes: R50.9 - Fever, unspecified Disposition: 30 STILL A PATIENT Condition: Fair Critical Care Note Critical Care Time?: No Stability Stability form required: No Heart Score Heart Score: Heart Score Response (Comments) Value History Slightly Suspicious 0 EKG Normal 0 Age >65 2 Risk Factors 1 or 2 risk factors 1 Troponin Normal limit 0 Total 3 DENNISE NICHOLAS MD Feb 23, 2025 18:02
--- NOTE | 2025-02-23 18:39 | DVH ---
EXAM: XR Chest, 2 Views CLINICAL INDICATION: sob TECHNIQUE: Frontal and lateral views of the chest. COMPARISON: None FINDINGS: LUNGS AND PLEURAL SPACES: Unremarkable. No consolidation. No pneumothorax. HEART: Unremarkable. No cardiomegaly. MEDIASTINUM: Unremarkable. Normal mediastinal contour. BONES/JOINTS: Unremarkable. No acute fracture. OTHER FINDINGS: . None. IMPRESSION: No acute cardiopulmonary process.
[2025-02-23 18:51] LABS: Basophils # (auto) 0 10 ^3/uL (0-0.2); Basophils % (auto) 0.2 % (0.0-2.0); Eosinophils # (auto) 0 10 ^3/uL (0-0.8); Eosinophils % (auto) 0.1 % (0.0-7.0); Hematocrit 39.5 % (36.0-46.0); Hemoglobin 13.3 g/dL (12.2-16.2); Lymphocytes # (auto) 0.7 10 ^3/uL (0.4-5.4); Lymphocytes % (auto) 7.6 % (10.0-50.0); Mean Corpuscular Hemoglobin 28.1 pg (28.0-32.0); Mean Corpuscular Hgb Conc. 33.7 g/dL (32.0-36.0); Mean Corpuscular Volume 83.4 fL (80.0-100.0); Monocytes # (auto) 0.5 10 ^3/uL (0-1.3); Monocytes % (auto) 6.1 % (0.0-12.0); Neutrophils # (auto) 7.6 10 ^3/uL (1.6-8.6); Platelet Count (auto) 208 10^3/uL (140-450); Red Blood Cells 4.73 10^6/uL (4.0-5.20); Red Cell Distribution Width 14.6 % (11.8-14.3); White Blood Cell 8.8 10^3/uL (4.4-10.8)
[2025-02-23 18:57] LABS: Chloride 99 mmol/L (98-107); Potassium 4.4 mmol/L (3.5-5.1)
[2025-02-23 18:58] LABS: Anion Gap 9 (5-15); Carbon Dioxide 21 mmol/L (20-31)
[2025-02-23 18:59] LABS: Calcium 9.4 mg/dL (8.7-10.4)
[2025-02-23 19:00] LABS: Sodium 129 mmol/L (136-145)
[2025-02-23 19:03] LABS: BUN/Creatinine Ratio 9.3 (10.0-20.0)
[2025-02-23 19:04] LABS: Blood Urea Nitrogen 9 mg/dL (9-23); Glucose 152 mg/dL (74-106)
[2025-02-23] MEDS: SODIUM CHLORIDE 0.9% 250 ML IV ONE (21:00)
[2025-02-23 21:53] VITALS: BP 129/73; PULSE 89; RESP 16; TEMP 98.7; O2SAT 97
[2025-02-23] MEDS: ONDANSETRON HCL 4 MG/2 ML VIAL IV ONE (21:53)
[2025-02-23 21:56] LABS: COVID19 ANTIGEN SOFIA FIA NEGATIVE (NEGATIVE)
[2025-02-23 21:57] LABS: Rapid Influenza B Negative (Negative)
[2025-02-23 21:59] LABS: Rapid Influenza A Positive (Negative)
--- NOTE | 2025-02-23 22:09 | DVHINCON2 ---
RASHAWN ESPINO NP 02/23/259: Date of service: Feb 23, [address] Quispe Reason for Consultation Medical management History of Present Illness 75-year-old female past medical history DM, hypertension, hyperlipidemia presents with complaints of fevers, nausea, vomiting, diarrhea x2 days. On arrival to the emergency department patient was noted to be febrile with a temperature of 102.3. Patient was able tolerate oral Tylenol along with sips of water without vomiting. During the emergency department evaluation BMP: Na 129 otherwise was unremarkable. CBC was unremarkable. Chest x-ray had no acute cardiopulmonary disease was interpreted per the radiologist and reviewed by myself. At this time patient was alert and oriented x4. She did endorse she had hematuria one month ago and was treated with oral antibiotics per PCP which has now resolved. Denies shortness of breath, chest pain, palpitations, leg edema, dysuria, hematuria, hematemesis, hematochezia. Past Medical History Hypertension, hyperlipidemia, UTI, DM Family History: Patient reports no known family medical history. Social History Denies EtOH, illicit drugs, smoking Allergies: Coded Allergies: Aspirin (Verified Allergy, Severe, 08/01/19) Home Meds Active Scripts Senna (Senokot) 8.6 Mg Tab, 1 TAB PO BID, #20 TAB Prov:MICAELA BOSTON MD 03/26/24 Docusate Sodium (Colace) 100 Mg Cap, 1 CAP PO BID, #30 CAP Prov:MICAELA BOSTON MD 03/26/24 Cephalexin Monohydrate (Cephalexin) 500 Mg Cap, 1 CAP PO TID for 3 Days, #9 CAP Prov:MICAELA BOSTON MD 03/26/24 Captopril (Captopril) 25 Mg Tab, 1 TAB PO BID, #30 TAB Prov:WENDIE LINARES MD 07/19/23 Reported Medications Sitagliptin Phosphate (Januvia) 25 Mg Tab, 1 TAB PO DAILY 07/19/23 Rosuvastatin Calcium (Rosuvastatin Calcium) 20 Mg Tab, 1 TAB PO DAILY 07/19/23 Metoprolol Tartrate (Metoprolol Tartrate) 50 Mg Tab, 50 MG PO BID for 30 Days, MG 04/13/15 Review of Systems Ten systems reviewed and negative except as per HPI Vital Signs Vital Signs Date Time Temp Pulse Resp B/P (MAP) Pulse Ox O2 Delivery O2 Flow Rate FiO2 02/23/25 17:29 102.3 02/23/25 17:20 96 18 122/75 (91) 93 Physical Exam GENERAL: Patient appearing stated age, in no acute distress. HEENT: Pupils equal and reactive to light and accommodation. Extraocular muscles intact. Mucous membranes moist. Conjunctivae pink. Anicteric sclerae. LUNGS: Bilateral air entry. No wheezes, rhonchi or rales. HEART: Regular rate and rhythm. Normal S1 and S2. ABDOMEN: BS normoactive, soft, nontender, and nondistended. No CVA tenderness. EXTREMITIES: No clubbing, cyanosis, edema. No calf tenderness. Pedal pulses 2+. NEUROLOGICAL: The patient is alert and oriented times 3. CN II-XII intact. No focal deficits on gross sensory or motor examination Labs/Diagnostic Data Labs Test 02/23/25 21:08 02/23/25 18:02 02/23/25 17:51 Range/Units White Blood Count 8.8 4.4-10.8 10^3/uL Red Blood Count 4.73 4.0-5.20 10^6/uL Hemoglobin 13.3 12.2-16.2 g/dL Hematocrit 39.5 36.0-46.0 % Mean Corpuscular Volume 83.4 80.0-100.0 fL Mean Corpuscular Hemoglobin 28.1 28.0-32.0 pg Mean Corpuscular Hemoglobin Concent 33.7 32.0-36.0 g/dL Red Cell Distribution Width 14.6 H 11.8-14.3 % Platelet Count 208 140-450 10^3/uL Mean Platelet Volume 7.5 6.9-10.8 fL Neutrophils (%) (Auto) 86.0 H 37.0-80.0 % Lymphocytes (%) (Auto) 7.6 L 10.0-50.0 % Monocytes (%) (Auto) 6.1 0.0-12.0 % Eosinophils (%) (Auto) 0.1 0.0-7.0 % Basophils (%) (Auto) 0.2 0.0-2.0 % Neutrophils # (Auto) 7.6 1.6-8.6 10 ^3/uL Lymphocytes # (Auto) 0.7 0.4-5.4 10 ^3/uL Monocytes # (Auto) 0.5 0-1.3 10 ^3/uL Eosinophils # (Auto) 0 0-0.8 10 ^3/uL Basophils # (Auto) 0 0-0.2 10 ^3/uL Nucleated Red Blood Cells 0.0 % Lactic Acid Level 1.2 0.4-2.0 mmol/L Sodium Level 129 L 136-145 mmol/L Potassium Level 4.4 3.5-5.1 mmol/L Chloride Level 99 98-107 mmol/L Carbon Dioxide Level 21 20-31 mmol/L Anion Gap 9 5-15 Blood Urea Nitrogen 9 9-23 mg/dL Creatinine 0.97 0.550-1.02 mg/dL Glomerular Filtration Rate Calc 60 >90 mL/min BUN/Creatinine Ratio 9.3 L 10.0-20.0 Serum Glucose 152 H 74-106 mg/dL Calcium Level 9.4 8.7-10.4 mg/dL Assessment Viral syndrome Influenza a positive Hyponatremia (129) Fever Plan/Recommendation Patient was seen and evaluated in the ER treatment area. Patient's chart was reviewed in its entirety including lab work, imaging, vital signs and previous visits. I did go ahead and order influenza a and B/CV 19 pending. I also ordered normal saline bolus. At this time patient is hemodynamically stable with blood pressure 129/73 heart rate 89, oxygen saturation 97% on room air, And temperature 98.7. Considering that the patient was able to tolerate oral intake and can monitor her temperature, I feel comfortable sending this patient home with outpatient follow-up. Patient is to be discharged home O case management has been consulted to establish home safety evaluation for following day. We will follow-up outpatient at urgent Care for repeat BMP for hyponatremia. Patient was instructed to monitor temperature and maintain hydration. Patient was provided with strict ER precautions including but not limited to dizziness, syncope, shortness of breath, chest pain, hematemesis, hematochezia, melena. If any of these occur please return to the nearest emergency department for further evaluation and treatment. Plan was discussed in detail with both patient and her spouse, who both agree with the current plan of care. Plan discussed with: Patient, Spouse MICAELA BOSTON MD 02/24/251925: Date of service: Feb 23, 2025 Family History: Patient reports no known family medical history. Allergies: Coded Allergies: Aspirin (Verified Allergy, Severe, 08/01/19) Home Meds Active Scripts Senna (Senokot) 8.6 Mg Tab, 1 TAB PO BID, #20 TAB Prov:MICAELA BOSTON MD 03/26/24 Docusate Sodium (Colace) 100 Mg Cap, 1 CAP PO BID, #30 CAP Prov:MICAELA BOSTON MD 03/26/24 Cephalexin Monohydrate (Cephalexin) 500 Mg Cap, 1 CAP PO TID for 3 Days, #9 CAP Prov:MICAELA BOSTON MD 03/26/24 Captopril (Captopril) 25 Mg Tab, 1 TAB PO BID, #30 TAB Prov:WENDIE LINARES MD 07/19/23 Reported Medications Sitagliptin Phosphate (Januvia) 25 Mg Tab, 1 TAB PO DAILY 07/19/23 Rosuvastatin Calcium (Rosuvastatin Calcium) 20 Mg Tab, 1 TAB PO DAILY 07/19/23 Metoprolol Tartrate (Metoprolol Tartrate) 50 Mg Tab, 50 MG PO BID for 30 Days, MG 04/13/15 Additional Comments Additional Comments Additional Comments I agree with the assessment and plan as outlined by my nurse practitioner. RASHAWN ESPINO NP Feb 23, 2025 22:09 MICAELA BOSTON MD Feb 24, 2025 19:26
== END 2025-02-23 22:53 | disposition home or self-care (01) ==
LOC: ER 17:18
DX: I12.9 Hypertensive chronic kidney disease with stage 1 through stage 4 chronic kidney disease, or unspecified chronic kidney disease (principal); N18.30 Chronic kidney disease, stage 3 unspecified; R50.9 Fever, unspecified; E11.22 Type 2 diabetes mellitus with diabetic chronic kidney disease; E78.5 Hyperlipidemia, unspecified; Z79.84 Long term (current) use of oral hypoglycemic drugs; Z79.899 Other long term (current) drug therapy; Z87.11 Personal history of peptic ulcer disease; Z98.890 Other specified postprocedural states; Z90.710 Acquired absence of both cervix and uterus; Z90.49 Acquired absence of other specified parts of digestive tract; Z88.6 Allergy status to analgesic agent; Z20.822 Contact with and (suspected) exposure to COVID-19
CPT/HCPCS: 36415; 71046; 80048; 83605; 85025; 87426; 87804; 96360; 96361; 99284; J7050